=== PATIENT | female | born 1965 | race Caucasian/White ===

== ENCOUNTER → 2017-02-03 | Outpatient (CLI) | payer BC ==
--- NOTE | 2017-02-03 13:52 | DIAGNOSTIC IMAGING REPORT ---
RIGHT UPPER EXT JOINT WITHOUT CLINICAL HISTORY: 51 years-old Female presenting with R ELBOW PAIN Right. TECHNIQUE: Multisequence, multiplanar MR imaging of the right elbow was performed without the use of intravenous contrast. IV contrast: None. COMPARISON: None. FINDINGS: Localizer images: Unremarkable. Bone marrow signal intensity is normal. Articular cartilage intact. Apparent slight dorsal subluxation of the radial head on the capitellum, which is likely positional related to extreme extension. Common extensor tendon and radial collateral ligament intact. Common flexor tendon and ulnar collateral ligament intact. No elbow joint effusion. Normal muscle bulk. Minimal increased signal intensity within the brachialis and to a lesser extent in the supinator. Biceps tendon intact. IMPRESSION: Minimal increased signal intensity in the brachialis and supinator muscles suggesting strain. No evidence of tear. Electronically signed by: Manjinder Fernandez M.D. 02/03/2017 1:51 PM Dictated Date/Time: 02/03/2017 1:30 PM
== END | disposition home or self-care (01) ==
LOC: C.MRIBC 12:03
PROVIDERS: ATTEND Internal Medicine
DX: M25.521 Pain in right elbow (principal)

== ENCOUNTER → 2017-02-20 | Outpatient (CLI) | payer BC ==
--- NOTE | 2017-02-20 09:56 | DIAGNOSTIC IMAGING REPORT ---
RIGHT HUMERUS MIN 2 VIEWS CLINICAL HISTORY: 51 years-old Female presenting with PAIN IN RIGHT UPPER ARM Right. TECHNIQUE: Frontal and lateral views of the right humerus were obtained. COMPARISON: MR of the right elbow from 02/03/2017. FINDINGS: No acute fracture or subluxation. Glenohumeral and elbow joints grossly congruent. Regional soft tissues within normal limits. IMPRESSION: No osseous abnormality of the right humerus. Electronically signed by: Manjinder Fernandez M.D. 02/20/2017 9:55 AM Dictated Date/Time: 02/20/2017 9:51 AM
== END | disposition home or self-care (01) ==
LOC: C.RDSM 12:02
PROVIDERS: ATTEND Physician Assistant
DX: M79.621 Pain in right upper arm (principal)

== ENCOUNTER 2021-04-01 05:07 | Inpatient (IN) ==
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
[2021-04-01] MEDS ORDERED: ceFAZolin 2000MG 2,000 MG/15 ML SYR IV SCH (06:00)
[2021-04-01] MEDS ORDERED: LR 15ML/HR IV SCH (06:00)
[2021-04-01] MEDS ORDERED: ATROPINE SULFATE 0.1 MG/ML 10ML SYR IV PRN (06:36)
[2021-04-01] MEDS ORDERED: ePHEDrine sulfate 50 MG/ML AMP IV PRN (06:36)
[2021-04-01] MEDS ORDERED: ONDANSETRON INJ 2 MG/ML 2 ML VIAL IV PRN (06:36)
[2021-04-01] MEDS ORDERED: MIDAZOLAM HCL 1 MG/ML 2ML VIAL ONE (06:45)
[2021-04-01] MEDS ORDERED: fentaNYL citrate 100 MCG/2 ML VIAL ONE (06:46)
[2021-04-01] MEDS ORDERED: ACETAMINOPHEN 1000 MG/100 ML IV IV ONE (06:58)
[2021-04-01] MEDS ORDERED: PROPOFOL IV EMULSION 10 MG/ML 20 ML VIAL IV ONE (07:02)
[2021-04-01] MEDS ORDERED: ONDANSETRON INJ 2 MG/ML 2 ML VIAL ONE ×2 (07:02→08:35)
[2021-04-01] MEDS ORDERED: DEXAMETHASONE SOD INJ 4 MG/ML VIAL ONE ×2 (07:02)
[2021-04-01] MEDS ORDERED: ROCURONIUM BROMIDE 10 MG/ML 5 ML VIAL IV ONE (07:02)
[2021-04-01] MEDS ORDERED: LIDOCAINE 2% 2 ML VIAL/AMP(20MG/ML) INFIL ONE (07:02)
--- NOTE | 2021-04-01 07:09 | History & Physical Bridge Note ---
Date of Service April 01, 2021 History & Physical Bridge Note I have examined the patient, reviewed the History & Physical and in the interval since the performance of the History & Physical I have noted the following changes of clinical significance: no changes noted
[2021-04-01] MEDS ORDERED: diphenhydrAMINE 50 MG/ML VIAL ONE ×2 (08:09→08:15)
[2021-04-01] MEDS ORDERED: HYDROmorphone INJ 2 MG/ML SYR/VIAL ONE (08:24)
[2021-04-01] MEDS: BUPIVACAINE 0.5 % 5 MG/1 ML MPF 30ML VIAL ONE ×2 (08:43→10:24)
[2021-04-01] MEDS: EPINEPHrine INJ 1 MG/ML AMP ONE ×2 (08:43→10:24)
[2021-04-01] MEDS ORDERED: GLYCOPYRROLATE 0.2 MG/ML VIAL ONE (09:15)
[2021-04-01] MEDS ORDERED: NEOSTIGMINE METHYLSULFATE 1 MG/ML 10ML VIAL ONE (09:15)
[2021-04-01] MEDS: fentaNYL citrate 100 MCG/2 ML VIAL IV PRN ×4 (10:12→10:27)
--- NOTE | 2021-04-01 10:13 | Operative Report ---
PG Post Operative Report Pre & Post Diagnosis Operation Date: 04/01/21 07:15 Pre-Op Diagnosis: Colon Mass Post-Op Diagnosis: Colon Mass I identified the patient and participated in the time-out.: Yes Procedure Operation Date: 04/01/21 07:15 Actual Procedures p Laparoscopy, Convert to Open Left Hemicolectomy, Mobilization of Splenic Flexure(Not Applicable) - Doe Abdullahi DO Surgeon Doe Abdullahi DO Branding Machine Operator dionicio Richards Estimated Blood Loss 15 Findings Consistent with Post-Op Diagnosis Specimens left colon, portion of transverse colon Description of Procedure After informed consent was obtained the patient was taken to the operating room and placed in a supine position. After successful intubation a Mccollum catheter was placed sterilely and the patient was placed in a low lithotomy position. The entire abdomen and perineum was sterilely prepped and draped in usual fashion. I began with a supraumbilical incision made with an 11 blade scalpel. This was carried down through the soft tissues using cautery. The anterior rectus fascia was opened using cautery and two #0 Vicryl stay sutures were placed. Peritoneum was elevated with Opal clamps and incised under direct vision using a Metzenbaum scissor. A finger sweep was performed. A 12 mm Palacios trocar was advanced and the abdomen was insufflated to 18 mmHg. The laparoscope was inserted and the abdomen examined in 360 degrees. No gross abnormalities were identified. A right lower quadrant 12 mm port and a right mid abdominal 5 mm port were placed under direct vision. Patient was placed in a Trendelenburg position and slightly airplaned to the right. We began in the pelvis and ran the sigmoid colon proximally. Eventually we were able to identify 2 different tattoo kirkpatrick. One proximal to the lesion and one distal to the lesion as stated in the colonoscopy report. Unfortunately this was essentially right at the splenic flexure. This was going to make completion of the procedure laparoscopically quite difficult. No other gross abnormalities were identified. I made the decision early on to convert to a open procedure. We removed all the trochars and desufflated the abdomen. Incision was made from the supraumbilical trocar site up to just below the xiphoid process. Cautery was used to carry this down through the soft tissue. The fascia was opened in the midline and the incision opened to both poles using cautery. We did use a Bookwalter retractor throughout the case to help with exposure. We are able to readily identify the tattoo kirkpatrick. We mobilized the entire left colon along the white line of Toldt from the sigmoid up to and around the splenic flexure to the midportion of the transverse colon. I transected the left colon just proximal to the left colic vessels using a JOSE LUIS brown cartridge 60 mm stapler. We then transected the transverse colon just distal to the middle colic vessels again using a JOSE LUIS brown cartridge linear stapler. A LigaSure device was used to take down the mesentery of the colon staying as low as possible to incorporate lymph nodes. Once we had the specimen removed the mass itself was in the midportion of the specimen. It was sent to pathology. We thoroughly irrigated the wound. There was plenty of sigmoid colon which we had mobilized. It was quite redundant. Therefore we were able to perform a side to side transverse to sigmoid colon anastomosis. We did this using a JOSE LUIS brown cartridge linear stapler. We closed the common enterotomy with a brown cartridge stapler as well. The mesenteric defect was closed using 2-0 Vicryl in a running fashion. 3-[address] was [address] to place a crotch stitch. The staple lines looked good and intact. There was good blood supply and no evidence of any ischemia. Final thorough irrigation was performed. There was adequate hemostasis. We closed the fascia using 0-looped PDS in a running fashion. Soft tissue was irrigated and closed using 2-0 Vicryl for deep layers 3-0 Vicryl for mid layers and 3-0 Monocryl in a running subcuticular fashion for the skin. Benzoin Steri-Strips gauze and tape were used as a dressing. The right sided trocar sites were closed using 4-0 Monocryl and covered with Dermabond glue. The patient was awakened, extubated and transferred to recovery in stable condition. My physician patient clerical assistant was present through the entire case. He was instrumental in exposure throughout the procedure as well as with assisting on the anastomosis wound closure and dressing placement. I attest to the content of the Intraoperative Record and any orders documented therein. Any exceptions are noted below.
[2021-04-01] MEDS: HYDROmorphone INJ 1 MG/ML SYRINGE IV PRN ×6 (10:34→13:05)
--- NOTE | 2021-04-01 11:04 | Anesthesiology Progress Note ---
Date of Service April 01, 2021 Anesthesia Post Procedure Vital Signs Vital Signs: Temp Pulse Resp BP Pulse Ox 04/01/21 10:45 81 16 134/77 97 04/01/21 10:35 68 16 133/60 97 04/01/21 10:25 60 16 142/81 H 98 04/01/21 10:15 68 18 163/73 H 100 04/01/21 10:09 36.5 C 75 18 171/90 H 100 04/01/21 05:15 36.7 C 83 20 131/79 98 Transfer of Care Handoff Completed per policy Notes Mental Status: alert / awake / arousable and participated in evaluation Patient Amnestic to Procedure: Yes Nausea / Vomiting: adequately controlled Pain: adequately controlled Airway Patency, RR, SpO2: stable & adequate BP & HR: stable & adequate Hydration State: stable & adequate Anesthetic Complications: no major complications apparent and Pt Satisfied with anesthetic care
[2021-04-01] MEDS ORDERED: HYDROmorphone PCA 30 MG/30 ML IV ONE (14:02)
[2021-04-01] MEDS: LACTATED RINGER'S 1,000 ML IV SCH ×2 (14:30→22:34)
[2021-04-01] MEDS ORDERED: ACETAMINOPHEN 1,000 MG/100 ML VIAL IV PRN (15:03)
[2021-04-01] MEDS ORDERED: NALOXONE HCL 0.4 MG/1 ML VIAL/CARP IV PRN (15:03)
[2021-04-01] MEDS ORDERED: AMPHETAMINE ASP/SULF/DEXTRAMPH 5 MG TAB PO PRN (15:30)
[2021-04-01] MEDS: SODIUM CHLORIDE 0.9% 1000ML 1,000 ML IV SCH (15:32)
[2021-04-01] MEDS: ceFAZolin 2000MG 2,000 MG/15 ML SYR IV SCH ×2 (16:17→23:11)
[2021-04-01] MEDS: HYDROmorphone PCA 30 MG/30 ML IV PRN (19:03)
[2021-04-01] MEDS: HYDROXYCHLOROQUINE SULFATE 200 MG TAB PO SCH (21:48)
--- NOTE | 2021-04-02 03:31 | Communication Note ---
Date of Service: April 02, 2021 I was called by nurse stating that patient was utilizing [employer] for abdominal pain but was complaining of a frontal headache. At visit patient at bedside she was awake alert and appropriate. She did not have any noted neurologic deficits. Concerning her headache she said it is in the frontal region of her head in a symmetric fashion and came on gradually. Is possible that the patient's headache is related to several factors including being n.p.o. prior to her surgery and since the surgical procedure along with side effects of the [employer] that she is ut ilizing for postoperative pain. Patient has intravenous acetaminophen ordered which may help alleviate the headache.
[2021-04-02 06:35] LABS: Basophils # (auto) 0.01 K/uL (0-0.2); Basophils % (auto) 0.1 %; Eosinophils # (auto) 0.02 K/uL (0-0.5); Eosinophils % (auto) 0.2 %; Hematocrit (blood only) 34.5 % (37-47); Hemoglobin 11.4 g/dL (12.0-16.0); Immature Granulocytes # (auto) 0.01 K/uL (0.00-0.02); Immature Granulocytes % (auto) 0.1 %; Lymphocytes # (auto) 2.59 K/uL (1.2-3.4); Lymphocytes % (auto) 22.7 %; Mean Corpuscular Hemoglobin 29.2 pg (25-34); Mean Corpuscular Volume 88.2 fL (80-100); Mean Platelet Volume 10.4 fL (7.4-10.4); Monocytes # (auto) 1.37 K/uL (0.11-0.59); Neutrophils # (auto) 7.41 K/uL (1.4-6.5); Neutrophils % (auto) 64.9 %; Platelet Count 255 K/uL (130-400); RDW Coefficient of Variation 13.7 % (11.5-14.5); Red Blood Count 3.91 M/uL (4.2-5.4); White Blood Count 11.41 K/uL (4.8-10.8)
[2021-04-02] MEDS: LACTATED RINGER'S 1,000 ML IV SCH ×3 (06:48→23:12)
[2021-04-02 07:00] LABS: BUN Creatinine Ratio 14.2 (10-20); Calcium 8.5 mg/dl (8.5-10.1); Creatinine Clr Calc Pharmacy 99.5 ml/min; Est GFR (African American) 116.6 ml/min; Est GFR (Non-African American) 100.6 ml/min; Potassium 3.9 mmol/L (3.5-5.1)
[2021-04-02] MEDS: HYDROmorphone PCA 30 MG/30 ML IV PRN (07:17)
[2021-04-02] MEDS ORDERED: oxyCODONE/ACETAMINOPHEN 5mg/325mg TAB PO PRN (08:08)
[2021-04-02] MEDS ORDERED: HYDROmorphone INJ 0.5 MG/0.5 ML SYR IV PRN (08:08)
[2021-04-02] MEDS ORDERED: ACETAMINOPHEN 1,000 MG/100 ML VIAL IV SCH (08:30)
[2021-04-02] MEDS: ceFAZolin 2000MG 2,000 MG/15 ML SYR IV SCH (08:36)
[2021-04-02] MEDS: ENOXAPARIN INJ 40 MG/0.4 ML SYR SQ SCH (08:36)
[2021-04-02] MEDS: oxyCODONE/ACETAMINOPHEN 5mg/325mg TAB PO PRN ×2 (09:51→14:44)
--- NOTE | 2021-04-02 11:03 | Surgery Progress Note ---
Date of Service April 02, 2021 Assessment & Plan (1) Colonic mass: Plan: POD 1 doing as expected will add acetaminophen around the clock can try some clears cautiously [facility] documentation spec for weekend. Admission and Anticipated Discharge Date Admission Date: April 01, 2021 Subjective pt doing ok.. having expected abdominal discomfort. c/o of CUENCA....IV acetaminophen has helped. no nausea. Physical Exam Physical Exam: alert. nad abd: soft. dressings C/D/I. Results & Data ([facility]) Vital Signs (Past 12 Hours) Vital Signs Temp Pulse Resp BP Pulse Ox 04/02/21 07:20 36.8 C 84 16 136/76 98 04/02/21 03:18 166/91 H 04/02/21 03:07 36.4 C L 72 13 170/66 H 97 04/01/21 23:06 74 17 150/76 H 98 PG Care Time/CCT Total # of Minutes Spent Total Time Spent with Patient: Total time spent is greater than 50% in coordination of care (as documented) at patient's floor/unit and/or counseling patient: Coding Level of Care Code None Diagnoses Colonic mass K63.89
[2021-04-02] MEDS: ACETAMINOPHEN 1,000 MG/100 ML VIAL IV SCH ×2 (12:32→19:44)
[2021-04-02] MEDS: SODIUM CHLORIDE 0.9% 1000ML 1,000 ML IV SCH (16:23)
[2021-04-02] MEDS: HYDROXYCHLOROQUINE SULFATE 200 MG TAB PO SCH (20:27)
[2021-04-02] MEDS: ONDANSETRON INJ 2 MG/ML 2 ML VIAL IV PRN (20:50)
[2021-04-03] MEDS: ACETAMINOPHEN 1,000 MG/100 ML VIAL IV SCH ×3 (03:32→19:24)
[2021-04-03] MEDS: LACTATED RINGER'S 1,000 ML IV SCH ×3 (06:30→21:51)
[2021-04-03 06:32] LABS: Basophils # (auto) 0.01 K/uL (0-0.2); Basophils % (auto) 0.1 %; Eosinophils # (auto) 0.21 K/uL (0-0.5); Eosinophils % (auto) 2.2 %; Hematocrit (blood only) 34.4 % (37-47); Immature Granulocytes # (auto) 0.01 K/uL (0.00-0.02); Immature Granulocytes % (auto) 0.1 %; Lymphocytes # (auto) 1.98 K/uL (1.2-3.4); Lymphocytes % (auto) 20.5 %; Mean Corpuscular Hemoglobin 29.2 pg (25-34); Mean Corpuscular Volume 91.2 fL (80-100); Mean Platelet Volume 10.5 fL (7.4-10.4); Monocytes % (auto) 8.3 %; Neutrophils # (auto) 6.66 K/uL (1.4-6.5); Neutrophils % (auto) 68.8 %; Platelet Count 242 K/uL (130-400); RDW Coefficient of Variation 13.8 % (11.5-14.5); RDW Standard Deviation 45.8 fL (36.4-46.3); Red Blood Count 3.77 M/uL (4.2-5.4); White Blood Count 9.67 K/uL (4.8-10.8)
[2021-04-03 07:05] LABS: BUN Creatinine Ratio 8.5 (10-20); Calcium 8.3 mg/dl (8.5-10.1); Creatinine Clr Calc Pharmacy 107.1 ml/min; Est GFR (African American) 119.3 ml/min; Est GFR (Non-African American) 102.9 ml/min; Potassium 3.3 mmol/L (3.5-5.1)
[2021-04-03] MEDS ORDERED: MoRPHine SULFATE 2 MG/ML CARP IV PRN (07:47)
[2021-04-03] MEDS ORDERED: diphenhydrAMINE Capsule 25 MG CAP PO PRN (07:53)
--- NOTE | 2021-04-03 07:59 | Surgery Progress Note ---
Date of Service April 03, 2021 Assessment & Plan (1) Colonic mass: Plan: POD2 from open colectomy for splenic flexure mass. Overall, doing well. Await return of bowel function - given bloating/ nausea, will continue on clears Headache - PO ibuprofen ordered, dilaudid changed to IV morphine PRN Increase activity Admission and Anticipated Discharge Date Admission Date: April 01, 2021 Subjective Feels bloated. Not hungry. Had some nausea yesterday but no vomiting. No flatus or bowel movement. Requesting something for headache which started after dilaudid. Physical Exam Constitutional: looks well Eyes: sclerae aniteric Respiratory: clear bilaterally, no use of accessory muscles Cardiovascular: RRR no murmurs Gastrointestinal (Abdomen): soft, distended, some bowel tones are present, tender as expected, dressing dry Neurologic: alert, oriented x 3 Results & Data ([facility]) Vital Signs (Past 12 Hours) Vital Signs Temp Pulse Resp BP Pulse Ox 04/03/21 06:16 36.8 C 93 H 16 155/91 H 93 04/02/21 23:06 36.9 C 103 H 16 155/79 H 97 Laboratory Results Abnormal lab results 04/03/21 04/03/21 Range/Units 06:00 06:00 RBC 3.77 L (4.2-5.4) M/uL Hgb 11.0 L (12.0-16.0) g/dL Hct 34.4 L (37-47) % MPV 10.5 H (7.4-10.4) fL Neut # (Auto) 6.66 H (1.4-6.5) K/uL Sullivan # (Auto) 0.80 H (0.11-0.59) K/uL Potassium 3.3 L D (3.5-5.1) mmol/L Chloride 110 H (98-107) mmol/L BUN 5 L (7-18) mg/dl Creatinine 0.57 L (0.6-1.2) mg/dl BUN/Creatinine Ratio 8.5 L (10-20) Calcium 8.3 L (8.5-10.1) mg/dl
[2021-04-03] MEDS: IBUPROFEN 200 MG TAB PO PRN ×2 (08:32→14:04)
[2021-04-03] MEDS: ENOXAPARIN INJ 40 MG/0.4 ML SYR SQ SCH (08:32)
[2021-04-03] MEDS: HYDROXYCHLOROQUINE SULFATE 200 MG TAB PO SCH (20:42)
[2021-04-04] MEDS: ACETAMINOPHEN 1,000 MG/100 ML VIAL IV SCH ×3 (02:21→19:25)
[2021-04-04] MEDS: IBUPROFEN 200 MG TAB PO PRN (04:01)
[2021-04-04] MEDS: LACTATED RINGER'S 1,000 ML IV SCH ×3 (06:00→22:20)
[2021-04-04 06:25] LABS: Basophils # (auto) 0.01 K/uL (0-0.2); Basophils % (auto) 0.1 %; Eosinophils # (auto) 0.36 K/uL (0-0.5); Hematocrit (blood only) 36.4 % (37-47); Lymphocytes # (auto) 1.73 K/uL (1.2-3.4); Lymphocytes % (auto) 23.9 %; Mean Corpuscular Hemoglobin 29.1 pg (25-34); Mean Corpuscular Volume 88.3 fL (80-100); Mean Platelet Volume 10.2 fL (7.4-10.4); Monocytes # (auto) 0.74 K/uL (0.11-0.59); Monocytes % (auto) 10.2 %; Neutrophils # (auto) 4.41 K/uL (1.4-6.5); Neutrophils % (auto) 60.8 %; Platelet Count 261 K/uL (130-400); RDW Coefficient of Variation 13.4 % (11.5-14.5); RDW Standard Deviation 43.8 fL (36.4-46.3); Red Blood Count 4.12 M/uL (4.2-5.4); White Blood Count 7.25 K/uL (4.8-10.8)
[2021-04-04 07:11] LABS: Calcium 8.7 mg/dl (8.5-10.1); Creatinine Clr Calc Pharmacy 129.9 ml/min; Est GFR (African American) 127.1 ml/min; Est GFR (Non-African American) 109.6 ml/min; Potassium 3.1 mmol/L (3.5-5.1)
[2021-04-04] MEDS: ENOXAPARIN INJ 40 MG/0.4 ML SYR SQ SCH (09:28)
--- NOTE | 2021-04-04 10:19 | Surgery Progress Note ---
Date of Service April 04, 2021 Assessment & Plan (1) Colonic mass: Plan: POD3 from open colectomy for splenic flexure mass. Overall, doing better than yesterday. Will advance to full liquid diet. Increase activity Hypokalemia - will replete Admission and Anticipated Discharge Date Admission Date: April 01, 2021 Subjective Feels better today. Not as bloated, passing some flatus. No bowel movement yet. Pain better controlled. No nausea with clears. Physical Exam Constitutional: WD/WN, vitals as above Respiratory: normal respiratory effort, lungs clear to auscultation Cardiovascular: RRR, no murmur, no edema Gastrointestinal (Abdomen): Inspection/Auscultation: abdomen normal to inspection, + abdomen distended, normal bowel sounds and + abdominal surgical incision (clean and dry) Percussion/Palpation: + abdomen tender (at incision) and abdomen soft Neurologic: awake; no focal motor deficits Psychiatric: A+Ox3, euthymic affect Results & Data ([facility]) Vital Signs (Past 12 Hours) Vital Signs Temp Pulse Resp BP Pulse Ox 04/04/21 06:41 36.9 C 85 16 160/91 H 95 04/03/21 23:32 37 C 89 16 162/78 H 94 Laboratory Results Abnormal lab results 04/04/21 04/04/21 Range/Units 05:35 05:35 RBC 4.12 L (4.2-5.4) M/uL Hct 36.4 L (37-47) % George # (Auto) 0.74 H (0.11-0.59) K/uL Potassium 3.1 L (3.5-5.1) mmol/L Chloride 108 H (98-107) mmol/L BUN 4 L (7-18) mg/dl Creatinine 0.47 L (0.6-1.2) mg/dl BUN/Creatinine Ratio 9.0 L (10-20)
[2021-04-04] MEDS: ONDANSETRON INJ 2 MG/ML 2 ML VIAL IV PRN (11:11)
[2021-04-04] MEDS: POTASSIUM CHLORIDE 10 MEQ TABCR PO SCH ×2 (11:11→22:20)
[2021-04-04] MEDS: HYDROXYCHLOROQUINE SULFATE 200 MG TAB PO SCH (20:00)
[2021-04-05] MEDS: ACETAMINOPHEN 1,000 MG/100 ML VIAL IV SCH (03:40)
[2021-04-05] MEDS: LACTATED RINGER'S 1,000 ML IV SCH (05:29)
[2021-04-05 06:12] LABS: Basophils # (auto) 0.01 K/uL (0-0.2); Basophils % (auto) 0.2 %; Eosinophils # (auto) 0.35 K/uL (0-0.5); Eosinophils % (auto) 6.1 %; Hematocrit (blood only) 34.4 % (37-47); Hemoglobin 11.4 g/dL (12.0-16.0); Immature Granulocytes # (auto) 0.01 K/uL (0.00-0.02); Immature Granulocytes % (auto) 0.2 %; Lymphocytes # (auto) 1.62 K/uL (1.2-3.4); Mean Corpuscular Hemoglobin 28.8 pg (25-34); Mean Corpuscular Hgb Conc 33.1 g/dL (32-36); Mean Corpuscular Volume 86.9 fL (80-100); Mean Platelet Volume 9.8 fL (7.4-10.4); Monocytes # (auto) 0.63 K/uL (0.11-0.59); Monocytes % (auto) 10.9 %; Neutrophils # (auto) 3.16 K/uL (1.4-6.5); Neutrophils % (auto) 54.6 %; Platelet Count 273 K/uL (130-400); RDW Coefficient of Variation 13.2 % (11.5-14.5); RDW Standard Deviation 42.5 fL (36.4-46.3); Red Blood Count 3.96 M/uL (4.2-5.4); White Blood Count 5.78 K/uL (4.8-10.8)
[2021-04-05 06:35] LABS: Calcium 8.6 mg/dl (8.5-10.1); Creatinine Clr Calc Pharmacy 124.6 ml/min; Est GFR (African American) 125.3 ml/min; Est GFR (Non-African American) 108.2 ml/min; Potassium 3.5 mmol/L (3.5-5.1)
--- NOTE | 2021-04-05 07:56 | Surgery Progress Note ---
Date of Service April 05, 2021 Assessment & Plan (1) Colonic mass: Plan: POD 4 can shower transition to po analgesics K+ corrected reg diet later today or tomorrow as above. +multiple bm's yesterday. roger full liquids wound looks good path pending will advance diet. poss d/c later today or tomorrow. Admission and Anticipated Discharge Date Admission Date: April 01, 2021 Subjective several small, loose BMS, tolerating full liquids Physical Exam Gastrointestinal (Abdomen): Inspection/Auscultation: + abdominal surgical incision (clean, dry); abdomen not distended Percussion/Palpation: abdomen so ft Results & Data ([facility]) Vital Signs (Past 12 Hours) Vital Signs Temp Pulse Resp BP Pulse Ox 04/05/21 07:24 36.8 C 88 18 161/94 H 94 04/04/21 22:28 36.6 C 74 16 146/82 H 95 PG Care Time/CCT Total # of Minutes Spent Total Time Spent with Patient: Total time spent is greater than 50% in coordination of care (as documented) at patient's floor/unit and/or counseling patient: Coding Level of Care Code None Diagnoses Colonic mass K63.89
[2021-04-05] MEDS: ENOXAPARIN INJ 40 MG/0.4 ML SYR SQ SCH (09:13)
[2021-04-05] MEDS: POTASSIUM CHLORIDE 10 MEQ TABCR PO SCH (09:14)
--- NOTE | 2021-04-06 15:16 | Discharge Summary ---
Date of Service April 06, 2021 Principal Diagnosis Colon mass-large TVA Discharge Exam Constitutional WD/WN, vitals as above Gastrointestinal (Abdomen) Inspection/Auscultation: + abdominal surgical incision (dry, no erythema) Percussion/Palpation: abdomen soft Discharge Data Allergies Allergy/AdvReac Type Severity Reaction Status Date / Time No Known Allergies Allergy Unknown Verified 04/01/21 05:27 Procedures Performed Operation Date: 04/01/21 07:15 Actual Procedures p Laparoscopy, Convert to Open Left Hemicolectomy, Mobilization of Splenic Flexure(Not Applicable) - Doe Abdullahi DO Hospital Course (1) Colonic mass: 55 y/o female was taken to the operating room for laparoscopic assisted colectomy. The mass was just distal to the splenic flexure and the procedure was converted to open for mobilization of splenic flexure and anastomosis. She transferred to the surgical floor. Lovenox was started on POD 1. Clear liquids were started on day one. She had some nausea on day 2 but by day 3 had some returning bowel function and was able to begin full liquids. By day 4 she was having bowel movements and was able to tolerate low fiber diet and oral analgesics. She was stable for discharge home later in the day. Total Time Total Time Spent Total Time Spent (In Minutes): 15 Discharge Plan Discharge Items Patient Disposition: Home - Self-Care Reason For Visit: Colon Mass Discharge Diagnosis: left colectomy Activity: As commented below Lifting: No more than 10 pounds Bathing Comment: ok to shower Driving/Machine Use: when pain free Non-emergency contact: Surgeon Call non-emergency contact if: you have any medication questions, your pain is not controlled, you have a fever, your temperature is above 101.5 and your wound has increased redness Follow-up/Referrals: ProGabriel MD [Primary Care Provider] - Doe Abdullahi DO [Surgeon] - 04/12/21 10:00 am (In 7-10 days, please call if you do not already have an appt) Diet: Low Fiber Diet Comment: low fiber for a few days Addtl Attending Provider Instructions: Pending Studies at Discharge: Yes Studies:: pathology Stand-Alone Forms: My [employer], Opioid Pain Management, Smoking Cessation Medications and DC Order Prescriptions: New oxycodone-acetaminophen [Percocet] 5-325 mg tablet 1 - 2 tab PO Q4H PRN (Reason: pain, initial therapy, max 6 daily) Qty: 18 RF: 0 Continued ciclopirox 8 % solution 1 applic topical DAILY 28 Days Qty: 6.6 RF: 3 ibuprofen 600 mg tablet 600 mg PO Q8H PRN (Reason: Pain) RF: 0 dextroamphetamine-amphetamine [Adderall] 5 mg tablet 5 mg PO DAILY PRN (Reason: COGNITIVE IMPAIRMENT) Qty: 30 RF: 0 hydroxychloroquine [Plaquenil] 200 mg Tablet 200 mg PO HS RF: 0 copper 380 square mm Intrauterine Device 1 device INTRAUTERINE UD RF: 0 Discharge Orders: Discharge Order (Routine); Ordered 04/05/21 Ordered By: Qasim Richards Jr Admission Data Admit Date/Time: 04/01/21 10:15 Attending Provider: Doe Abdullahi Admit Provider: Doe Abdullahi Primary Care Provider: Gabriel Carpenter Other Interventions: Discharge Summary Assessment (RN) Last Done: 04/05/21 13:45 Coding Level of Care Code D/C DAY MANAGEMENT <30 MINS Diagnoses Colonic mass K63.89
== END 2021-04-05 18:32 | disposition home or self-care (01) | DRG 331 ==
LOC: PACUINP 05:07 → ASU 05:07 → OBSVTOIN 11:08 → 3E 14:41

== ENCOUNTER 2021-04-17 06:13 | Inpatient (IN) ==
[2021-04-17] MEDS ORDERED: SODIUM CHLORIDE 0.9% 1000ML 2,000 ML IV ONE (06:48)
[2021-04-17] MEDS ORDERED: ACETAMINOPHEN 1,000 MG/100 ML VIAL IV STA (06:48)
[2021-04-17] MEDS ORDERED: ONDANSETRON INJ 2 MG/ML 2 ML VIAL IV STA (06:49)
[2021-04-17] MEDS ORDERED: MoRPHine SULFATE 4 MG/ML 1 ML CARP\\VIAL IV STA (06:49)
[2021-04-17 06:51] LABS: Basophils # (auto) 0.02 K/uL (0-0.2); Basophils % (auto) 0.2 %; Eosinophils # (auto) 0.14 K/uL (0-0.5); Eosinophils % (auto) 1.5 %; Hematocrit (blood only) 36.8 % (37-47); Hemoglobin 12.1 g/dL (12.0-16.0); Immature Granulocytes # (auto) 0.01 K/uL (0.00-0.02); Immature Granulocytes % (auto) 0.1 %; Lymphocytes # (auto) 1.44 K/uL (1.2-3.4); Lymphocytes % (auto) 15.7 %; Mean Corpuscular Hemoglobin 28.7 pg (25-34); Mean Corpuscular Hgb Conc 32.9 g/dL (32-36); Mean Corpuscular Volume 87.2 fL (80-100); Mean Platelet Volume 10.2 fL (7.4-10.4); Monocytes # (auto) 0.53 K/uL (0.11-0.59); Monocytes % (auto) 5.8 %; Neutrophils # (auto) 7.03 K/uL (1.4-6.5); Neutrophils % (auto) 76.7 %; Platelet Count 383 K/uL (130-400); RDW Coefficient of Variation 13.2 % (11.5-14.5); RDW Standard Deviation 42.2 fL (36.4-46.3); Red Blood Count 4.22 M/uL (4.2-5.4); White Blood Count 9.17 K/uL (4.8-10.8)
[2021-04-17 07:08] LABS: Albumin Level 2.9 gm/dl (3.4-5.0); BUN Creatinine Ratio 11.7 (10-20); Calcium 9.3 mg/dl (8.5-10.1); Creatinine Clr Calc Pharmacy 78.3 ml/min; Est GFR (African American) 104.2 ml/min; Est GFR (Non-African American) 89.9 ml/min; Potassium 3.8 mmol/L (3.5-5.1)
[2021-04-17 07:11] LABS: Albumin Globulin Ratio 0.7 (0.9-2); Bilirubin,Total 0.3 mg/dl (0.2-1); Globulin 4.1 gm/dl (2.5-4.0)
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
[2021-04-17 07:37] LABS: Magnesium 2.1 mg/dl (1.8-2.4); Phosphorus 3.2 mg/dl (2.5-4.9)
[2021-04-17] MEDS ORDERED: OPTIRAY 320 100ml IV ONE (07:47)
--- NOTE | 2021-04-17 08:47 | CT Scan Report ---
ABDOMEN AND PELVIS CT WITH IV CONTRAST CT DOSE: 392.41 mGy.cm HISTORY: Acute generalized abdominal pain with recent surgery abdominal pain s/p hemicolectomy TECHNIQUE: Multiaxial CT images of the abdomen and pelvis were performed following the IV administrat ion of 94 cc of Optiray, A dose lowering technique was utilized adhering to the principles of ALARA. COMPARISON STUDY: CT abdomen and pelvis 03/04/2016 FINDINGS: Trace pleural effusions with mild deep and bibasilar atelectasis. No pneumatosis or pneumop eritoneum. The imaged inferior cardiac chambers are mildly enlarged. The spleen measures the upper li mits of normal in size. The pancreas, adrenal glands and liver appear unremarkable. Patency of the he patic and portal veins. Distended gallbladder. There is no biliary ductal dilation. Unremarkable kidneys. No hydronephrosis. Heterogeneity of the uterus with probable fibroid. Satisfact ory positioning of the intrauterine device. No adnexal mass lesions. Aorta and IVC are unremarkable. No adenopathy. No bowel obstruction. Decompressed distal large bowel postoperative changes of the large bowel. Mesen teric edema with trace abdominopelvic ascites. Anastomotic michelle appear intact. Normal appendix. Mi ldly prominent lymph nodes of the right lower quadrant mesentery measure up to 7 mm. Diastases the mi dline abdominal wall measures 4.6 cm. Fluid with ill-defined margins and no discernible wall is noted at the area of diastases measuring 4.2 x 4.5 x 6.4 cm. Small fat filled periumbilical hernia. No acu te fracture. IMPRESSION: 1. Postoperative changes of the large bowel. No bowel obstruction, bowel wall thickening or pneumoper itoneum. 2. 4.6 cm diastases of the mid anterior abdominal wall with ill-defined fluid collection at the area of diastases measuring up to approximately 6.4 cm. This is suggestive of a seroma versus phlegmon. 3. Trace abdominal pelvic ascites with trace pleural effusions and mild dependent bibasilar atelectas is. 4. Fibroid uterus with intrauterine device. 5. Additional findings as above. ACT 112: Negative or not required by law. The above report was generated using voice recognition software. It may contain grammatical, syntax o r spelling errors. Electronically signed by: Angel Dickinson M.D. 04/17/2021 8:46 AM
[2021-04-17] MEDS ORDERED: PIPERACILL/TAZOBAC CONSULT ACTIVE PRN ×2 (09:59→15:57)
[2021-04-17] MEDS ORDERED: PIPERACILLIN/TAZOBACTAM 4.5 GM/120 ML BAG IV ONE (09:59)
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
[2021-04-17] MEDS ORDERED: ACETAMINOPHEN 325 MG TAB PO STA (10:36)
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
[2021-04-17] MEDS ORDERED: VANCOMYCIN CONSULT ACTIVE PRN (15:20)
[2021-04-17] MEDS ORDERED: VANCOMYCIN HCL 1,000 MG in SODIUM CHLORIDE 0.9% 250 ML IV SCH (15:57)
[2021-04-17] MEDS ORDERED: IBUPROFEN 600 MG TAB PO PRN (15:57)
[2021-04-17] MEDS ORDERED: MoRPHine SULFATE 2 MG/ML CARP IV PRN (15:57)
[2021-04-17] MEDS ORDERED: oxyCODONE/ACETAMINOPHEN 5mg/325mg TAB PO PRN (15:57)
[2021-04-17] MEDS ORDERED: ACETAMINOPHEN 500 MG TAB PO PRN (16:09)
[2021-04-17] MEDS: LACTATED RINGER'S 1,000 ML IV SCH (16:15)
[2021-04-17 16:17] LABS: Hematocrit (blood only) 33.8 % (37-47); Hemoglobin 11.3 g/dL (12.0-16.0); Mean Corpuscular Hgb Conc 33.4 g/dL (32-36); Mean Corpuscular Volume 86.7 fL (80-100); Mean Platelet Volume 10.1 fL (7.4-10.4); Platelet Count 388 K/uL (130-400); RDW Coefficient of Variation 13.4 % (11.5-14.5); RDW Standard Deviation 42.8 fL (36.4-46.3); White Blood Count 15.16 K/uL (4.8-10.8)
[2021-04-17] MEDS ORDERED: VANCOMYCIN HCL 1,500 MG in SODIUM CHLORIDE 0.9% 500 ML IV ONE (16:30)
[2021-04-17 16:38] LABS: BUN Creatinine Ratio 10.5 (10-20); Calcium 8.8 mg/dl (8.5-10.1); Est GFR (African American) 89.4 ml/min; Est GFR (Non-African American) 77.2 ml/min; Potassium 3.7 mmol/L (3.5-5.1)
[2021-04-17] MEDS: ONDANSETRON INJ 2 MG/ML 2 ML VIAL IV PRN (16:50)
[2021-04-17] MEDS: ENOXAPARIN INJ 30 MG/0.3 ML SYR SQ SCH (16:56)
[2021-04-17] MEDS: PIPERACILLIN/TAZOBACTAM 3.375 GM in DEXTROSE 5% 100 ML IV SCH ×2 (17:11→23:55)
--- NOTE | 2021-04-17 17:31 | Surgery Progress Note ---
Date of Service April 17, 2021 Assessment & Plan (1) Abdominal wall cellulitis: Plan: pt is a 55 year-old female who is post-op 2 weeks left colectomy, pt develops incision redness about 4 days ago, pt saw his surgeon DR. Abdullahi yesterday, the redness area is smaller, Dr. Abdullahi recommend to continue po antibiotic. pt came to [facility] with more abdominal pain, IMP: Post-op incision cellulitis, seroma, phlegmon, plan, I recommend to admit to hospital for IV antibiotic, control pain, repeat labs in morning, may need surgery if pt's symptoms are worse, pt and her agree with the plan, I answered all questions, will F/U 04/17/2021 5:23PM pt's called that he told me to contact DR. Abdullahi, do not do surgery until Dr. Abdullahi see pt, I called Dr. Abdullahi, who already talked to Dr. aSini on the phone, Dr. Abdullahi said that early he can see pt tomorrow morning, D/W with Dr. Saini. base on increase WBC to 15,000, I will close monitor pt, I recommend to drainage fluid collection on incision site if pt's condition is getting worse, pt and her and Dr. Saini agree with the plan, will F/U, Admission and Anticipated Discharge Date Admission Date: April 17, 2021 Subjective pt has T 38.6, with abdominal pain, after receiving iv antibiotic, Review of Systems Constitutional: as per Subjective / HPI Eyes: as per Subjective / HPI Respiratory: as per Subjective / HPI Cardiovascular: as per Subjective / HPI Gastrointestinal: S/P left hemicolectomy, Genitourinary: as per Subjective / HPI Musculoskeletal: as per Subjective / HPI Integumentary: as per Subjective / HPI Neurologic: as per Subjective / HPI Psychiatric: as per Subjective / HPI Endocrine: as per Subjective / HPI Hematologic / Lymphatic: sjogrens syndrome Physical Exam Constitutional: WD/WN, vitals as above Eyes: PERRL, conjunctivae normal, anicteric sclerae Neck: trachea midline, no thyromegaly Respiratory: normal respiratory effort, lungs clear to auscultation Cardiovascular: RRR, no murmur, no edema Gastrointestinal (Abdomen): same size redness at lower incision site, no drainage, not increase size, tenderness at RLQ, rebound pain +-, no distend, BS + Musculoskeletal: no cyanosis or clubbing, extremities motor strength 5/5 Neurologic: patellar DTR's 2+ bilat, sensation intact Psychiatric: A+Ox3, euthymic affect Results & Data ([facility]) Vital Signs (Past 12 Hours) Vital Signs Temp Pulse Pulse Pulse Resp BP BP 04/17/21 16:26 38.6 C H 102 H 18 111/68 04/17/21 16:20 38.3 C H 100 H 18 117/69 04/17/21 15:47 37.1 C 96 H 20 108/68 04/17/21 15:00 102 H 27 H 117/57 L 04/17/21 12:20 106 H 23 04/17/21 12:10 107 H 24 04/17/21 12:00 105 H 19 123/61 04/17/21 11:50 100 H 22 04/17/21 11:40 101 H 25 H 04/17/21 11:30 99 H 27 H 119/66 04/17/21 11:20 105 H 25 H 04/17/21 11:10 102 H 20 04/17/21 11:00 99 H 20 109/57 L 04/17/21 10:50 95 H 22 04/17/21 10:40 95 H 23 04/17/21 10:30 95 H 26 H 128/65 04/17/21 10:20 92 H 20 04/17/21 10:10 92 H 22 04/17/21 10:00 90 14 107/61 04/17/21 09:50 92 H 25 H 04/17/21 09:40 92 H 21 04/17/21 09:30 91 H 20 101/57 L 04/17/21 09:20 89 19 04/17/21 09:10 92 H 24 04/17/21 09:00 90 17 100/57 L 04/17/21 08:50 92 H 21 04/17/21 08:40 93 H 21 04/17/21 08:30 91 H 19 94/50 L 04/17/21 08:20 94 H 21 04/17/21 08:10 96 H 19 04/17/21 08:00 98 H 16 112/55 L 04/17/21 07:50 100 H 22 04/17/21 07:30 99 H 23 04/17/21 07:20 95 H 22 04/17/21 07:10 100 H 20 04/17/21 07:00 101 H 24 04/17/21 06:50 97 H 36 H 04/17/21 06:40 103 H 24 04/17/21 06:30 97 H 27 H 04/17/21 06:26 95 H 28 H 04/17/21 06:19 37.7 C H 97 H 24 119/66 Pulse Ox 04/17/21 16:26 98 04/17/21 16:20 98 04/17/21 15:47 99 04/17/21 15:00 95 04/17/21 12:20 93 04/17/21 12:10 96 04/17/21 12:00 97 04/17/21 11:50 94 04/17/21 11:40 96 04/17/21 11:30 96 04/17/21 11:20 100 04/17/21 11:10 97 04/17/21 11:00 89 L 04/17/21 10:50 96 04/17/21 10:40 95 04/17/21 10:30 96 04/17/21 10:20 96 04/17/21 10:10 95 04/17/21 10:00 93 04/17/21 09:50 93 04/17/21 09:40 92 04/17/21 09:30 92 04/17/21 09:20 93 04/17/21 09:10 92 04/17/21 09:00 92 04/17/21 08:50 92 04/17/21 08:40 92 04/17/21 08:30 91 04/17/21 08:20 92 04/17/21 08:10 90 04/17/21 08:00 91 04/17/21 07:50 92 04/17/21 07:30 94 04/17/21 07:20 93 04/17/21 07:10 94 04/17/21 07:00 95 04/17/21 06:50 96 04/17/21 06:40 91 04/17/21 06:30 97 04/17/21 06:26 90 04/17/21 06:19 96 Laboratory Results Abnormal lab results 04/17/21 04/17/21 04/17/21 Range/Units 06:40 06:40 16:09 WBC 15.16 H (4.8-10.8) K/uL RBC 3.90 L (4.2-5.4) M/uL Hgb 11.3 L (12.0-16.0) g/dL Hct 36.8 L 33.8 L (37-47) % Neut # (Auto) 7.03 H (1.4-6.5) K/uL Glucose 102 H (70-99) mg/dl AST 14 L (15-37) U/L Alkaline Phosphatase 155 H (45-117) U/L Albumin 2.9 L (3.4-5.0) gm/dl Globulin 4.1 H (2.5-4.0) gm/dl Albumin/Globulin Ratio 0.7 L (0.9-2) 04/17/21 Range/Units 16:09 WBC (4.8-10.8) K/uL RBC (4.2-5.4) M/uL Hgb (12.0-16.0) g/dL Hct (37-47) % Neut # (Auto) (1.4-6.5) K/uL Glucose 117 H (70-99) mg/dl AST (15-37) U/L Alkaline Phosphatase (45-117) U/L Albumin (3.4-5.0) gm/dl Globulin (2.5-4.0) gm/dl Albumin/Globulin Ratio (0.9-2)
--- NOTE | 2021-04-17 18:45 | Pharmacy Report ---
Pharmacy Abx Initial Consult - Date of Service April 17, 2021 04/17/21 - Pharmacy Dosing Scope Date of Consult: 04/17/21 Consultation requested by: Dr. Saini Pharmacy is consulted to initiate Vancomycin IV dosing therapy, order appropriate labs and adjust drug dose/frequency. - Objective Height: 5 ft 3 in Weight: 69.2 kg Vital Signs (Past 12hrs): Vital Signs Temp Pulse Pulse Pulse Resp BP BP 04/17/21 16:26 38.6 C H 102 H 18 111/68 04/17/21 16:20 38.3 C H 100 H 18 117/69 04/17/21 15:47 37.1 C 96 H 20 108/68 04/17/21 15:00 102 H 27 H 117/57 L 04/17/21 12:20 106 H 23 04/17/21 12:10 107 H 24 04/17/21 12:00 105 H 19 123/61 04/17/21 11:50 100 H 22 04/17/21 11:40 101 H 25 H 04/17/21 11:30 99 H 27 H 119/66 04/17/21 11:20 105 H 25 H 04/17/21 11:10 102 H 20 04/17/21 11:00 99 H 20 109/57 L 04/17/21 10:50 95 H 22 04/17/21 10:40 95 H 23 04/17/21 10:30 95 H 26 H 128/65 04/17/21 10:20 92 H 20 04/17/21 10:10 92 H 22 04/17/21 10:00 90 14 107/61 04/17/21 09:50 92 H 25 H 04/17/21 09:40 92 H 21 04/17/21 09:30 91 H 20 101/57 L 04/17/21 09:20 89 19 04/17/21 09:10 92 H 24 04/17/21 09:00 90 17 100/57 L 04/17/21 08:50 92 H 21 04/17/21 08:40 93 H 21 04/17/21 08:30 91 H 19 94/50 L 04/17/21 08:20 94 H 21 04/17/21 08:10 96 H 19 04/17/21 08:00 98 H 16 112/55 L 04/17/21 07:50 100 H 22 04/17/21 07:30 99 H 23 04/17/21 07:20 95 H 22 04/17/21 07:10 100 H 20 04/17/21 07:00 101 H 24 04/17/21 06:50 97 H 36 H 04/17/21 06:40 103 H 24 04/17/21 06:30 97 H 27 H 04/17/21 06:26 95 H 28 H 04/17/21 06:19 37.7 C H 97 H 24 119/66 Pulse Ox 04/17/21 16:26 98 04/17/21 16:20 98 04/17/21 15:47 99 04/17/21 15:00 95 04/17/21 12:20 93 04/17/21 12:10 96 04/17/21 12:00 97 04/17/21 11:50 94 04/17/21 11:40 96 04/17/21 11:30 96 04/17/21 11:20 100 04/17/21 11:10 97 04/17/21 11:00 89 L 04/17/21 10:50 96 04/17/21 10:40 95 04/17/21 10:30 96 04/17/21 10:20 96 04/17/21 10:10 95 04/17/21 10:00 93 04/17/21 09:50 93 04/17/21 09:40 92 04/17/21 09:30 92 04/17/21 09:20 93 04/17/21 09:10 92 04/17/21 09:00 92 04/17/21 08:50 92 04/17/21 08:40 92 04/17/21 08:30 91 04/17/21 08:20 92 04/17/21 08:10 90 04/17/21 08:00 91 04/17/21 07:50 92 04/17/21 07:30 94 04/17/21 07:20 93 04/17/21 07:10 94 04/17/21 07:00 95 04/17/21 06:50 96 04/17/21 06:40 91 04/17/21 06:30 97 04/17/21 06:26 90 04/17/21 06:19 96 Lab Results (24hrs): Laboratory Tests (24 Hours) 04/17/21 04/17/21 04/17/21 16:09 16:09 06:40 WBC 15.16 H Neut # (Auto) Creatinine 0.84 Est Cr Clr Drug Dosing 69.0 Procalcitonin < 0.05 04/17/21 04/17/21 06:40 06:40 WBC 9.17 Neut # (Auto) 7.03 H Creatinine 0.74 Est Cr Clr Drug Dosing 78.3 Procalcitonin Micro Results: 04/17/21 08:17 Aerobic Blood Culture - Pending Blood Anaerobic Blood Culture - Pending 04/17/21 07:21 Aerobic Blood Culture - Pending Blood Anaerobic Blood Culture - Pending - Assessment & Plan Assessment 55 year old F presenting with complications s/p colectomy with left lower quadrant abdominal pain, incision redness and intermittent low grade fevers x 4 days. Patient started on Augmentin 875mg bid on 04/16. Febrile currently, tmax 38.6. Blood cultures pending. Plan Vancomycin and Zosyn for treatment of Cellulitis. Vancomycin IV * Estimated PK Parameters: Jah 0.069 hr-1, t1/2 10 hr * Loading dose: 1500mg (21.6 mg/kg) * Maintenance dose: 1000 mg IV (14.5 mg/kg) every 12 hours * Utilized Tidewayx to target AUC 400-600 * Will obtain trough before 4th dose Piperacillin/tazobactam * 4.5 g bolus administered over 30 minutes, then 3.375 g IV extended infusion every 8 hours for CrCl greater than 20 mL/min Pharmacy will continue to follow and will adjust dose/frequency as necessary. Thank you.
[2021-04-17] MEDS: MoRPHine SULFATE 2 MG/ML CARP IV PRN ×2 (18:51→23:46)
[2021-04-17] MEDS: oxyCODONE/ACETAMINOPHEN 5mg/325mg TAB PO PRN (20:24)
[2021-04-17] MEDS ORDERED: AMOXICILLIN/CLAVULANATE 875MG HOME PACK PO SCH (21:00)
[2021-04-18] MEDS: oxyCODONE/ACETAMINOPHEN 5mg/325mg TAB PO PRN ×3 (02:35→14:54)
[2021-04-18] MEDS: ONDANSETRON INJ 2 MG/ML 2 ML VIAL IV PRN (02:36)
[2021-04-18] MEDS: LACTATED RINGER'S 1,000 ML IV SCH ×3 (02:40→18:56)
[2021-04-18] MEDS ORDERED: VANCOMYCIN HCL 1,000 MG in SODIUM CHLORIDE 0.9% 250 ML IV SCH (05:00)
[2021-04-18] MEDS: MoRPHine SULFATE 2 MG/ML CARP IV PRN ×3 (05:42→21:30)
[2021-04-18] MEDS: VANCOMYCIN HCL 1,000 MG in SODIUM CHLORIDE 0.9% 250 ML IV SCH ×2 (05:43→18:57)
[2021-04-18] MEDS: PIPERACILLIN/TAZOBACTAM 3.375 GM in DEXTROSE 5% 100 ML IV SCH ×2 (07:36→16:40)
[2021-04-18 07:46] LABS: Basophils # (auto) 0.02 K/uL (0-0.2); Basophils % (auto) 0.2 %; Eosinophils # (auto) 0.21 K/uL (0-0.5); Eosinophils % (auto) 1.6 %; Hematocrit (blood only) 31.4 % (37-47); Hemoglobin 10.2 g/dL (12.0-16.0); Immature Granulocytes # (auto) 0.03 K/uL (0.00-0.02); Immature Granulocytes % (auto) 0.2 %; Lymphocytes # (auto) 2.45 K/uL (1.2-3.4); Lymphocytes % (auto) 19.1 %; Mean Corpuscular Hemoglobin 28.8 pg (25-34); Mean Corpuscular Hgb Conc 32.5 g/dL (32-36); Mean Corpuscular Volume 88.7 fL (80-100); Mean Platelet Volume 11.4 fL (7.4-10.4); Monocytes # (auto) 1.27 K/uL (0.11-0.59); Monocytes % (auto) 9.9 %; Neutrophils # (auto) 8.82 K/uL (1.4-6.5); Platelet Count 366 K/uL (130-400); RDW Coefficient of Variation 13.6 % (11.5-14.5); RDW Standard Deviation 44.8 fL (36.4-46.3); Red Blood Count 3.54 M/uL (4.2-5.4)
[2021-04-18 08:08] LABS: Albumin Level 2.2 gm/dl (3.4-5.0); BUN Creatinine Ratio 14.5 (10-20); Calcium 9.1 mg/dl (8.5-10.1); Creatinine Clr Calc Pharmacy 88.4 ml/min; Est GFR (Non-African American) 96.6 ml/min; Magnesium 1.9 mg/dl (1.8-2.4); Potassium 3.7 mmol/L (3.5-5.1)
[2021-04-18 08:11] LABS: Albumin Globulin Ratio 0.6 (0.9-2); Bilirubin,Total 0.6 mg/dl (0.2-1); Globulin 3.6 gm/dl (2.5-4.0); Total Protein 5.8 gm/dl (6.4-8.2)
[2021-04-18] MEDS: ENOXAPARIN INJ 30 MG/0.3 ML SYR SQ SCH (08:49)
--- NOTE | 2021-04-18 09:36 | Surgery Progress Note ---
Date of Service April 18, 2021 Assessment & Plan (1) Wound infection: Plan: I see no evidence of an intra-abdominal process. After informed consent was obtained the patient was placed in supine position. Chlorhexidine wipes were used to sterilize the area over the visible abscess. 11 blade scalpel was used to open her skin sutures. Cotton-tipped applicator was then used to probe the wound which expressed a large amount of purulent fluid. Cultures were obtained and sent to the lab for Gram stain culture and sensitivity. After evacuating a large amount of fluid we irrigated the wound and I packed it with quarter inch plain packing. Sterile gauze and tape were applied. The patient tolerated the procedure well. This should dramatically improve her condition. We will continue with IV antibiotics. I can restart her diet. If she improves as anticipated potential for discharge tomorrow. Admission and Anticipated Discharge Date Admission Date: April 17, 2021 Subjective Patient seen. She is feeling much better than she was yesterday. Continues to have tenderness at the lower portion of her incision. Currently afebrile. Physical Exam Physical Exam: Alert and oriented no acute distress Abdomen is soft. No evidence of peritonitis. She does have an organizing abscess localized near the inferior pole of her midline incision. Much less erythema than yesterday but is now consolidated right at the incision itself. Results & Data ([facility]) Vital Signs (Past 12 Hours) Vital Signs Temp Pulse Resp BP Pulse Ox 04/18/21 07:30 36.8 C 81 16 106/68 94 04/18/21 04:10 36.6 C 86 18 99/65 L 90 PG Care Time/CCT Total # of Minutes Spent Total Time Spent with Patient: Total time spent is greater than 50% in coordination of care (as documented) at patient's floor/unit and/or counseling patient: Coding Level of Care Code None Diagnoses Wound infection T14.8XXA; L08.9 CPT Codes Drainage of Hematoma/Fluid - 80213 ([id number])
[2021-04-19] MEDS: PIPERACILLIN/TAZOBACTAM 3.375 GM in DEXTROSE 5% 100 ML IV SCH ×4 (00:53→23:33)
[2021-04-19] MEDS: LACTATED RINGER'S 1,000 ML IV SCH ×4 (03:23→21:25)
[2021-04-19] MEDS: oxyCODONE/ACETAMINOPHEN 5mg/325mg TAB PO PRN ×4 (03:28→23:33)
[2021-04-19] MEDS: VANCOMYCIN HCL 1,000 MG in SODIUM CHLORIDE 0.9% 250 ML IV SCH ×2 (04:39→17:37)
[2021-04-19 06:33] LABS: Basophils # (auto) 0.02 K/uL (0-0.2); Basophils % (auto) 0.1 %; Eosinophils # (auto) 0.25 K/uL (0-0.5); Eosinophils % (auto) 1.8 %; Hematocrit (blood only) 30.9 % (37-47); Hemoglobin 10.1 g/dL (12.0-16.0); Immature Granulocytes # (auto) 0.06 K/uL (0.00-0.02); Immature Granulocytes % (auto) 0.4 %; Lymphocytes # (auto) 2.09 K/uL (1.2-3.4); Lymphocytes % (auto) 14.9 %; Mean Corpuscular Hemoglobin 28.5 pg (25-34); Mean Corpuscular Hgb Conc 32.7 g/dL (32-36); Mean Corpuscular Volume 87.3 fL (80-100); Monocytes # (auto) 1.36 K/uL (0.11-0.59); Monocytes % (auto) 9.7 %; Neutrophils # (auto) 10.28 K/uL (1.4-6.5); Neutrophils % (auto) 73.1 %; Platelet Count 377 K/uL (130-400); RDW Coefficient of Variation 13.3 % (11.5-14.5); Red Blood Count 3.54 M/uL (4.2-5.4); White Blood Count 14.06 K/uL (4.8-10.8)
--- NOTE | 2021-04-19 10:09 | Surgery Progress Note ---
Date of Service April 19, 2021 Assessment & Plan (1) Wound infection: (2) Abdominal pain: Plan: ? etiology. afebrile. exam relatively benign. wbc still 14,000. will monitor over next 24 hours...if wbc increases will re-CT scan tomorrow. continue iv antibiotics. continue local wound care. Admission and Anticipated Discharge Date Admission Date: April 17, 2021 Subjective pt seen. "just don't feel well". no specific complaints. poor appetite. tired. still with some RLQ discomfort with movment. afebrile. no n/v. Physical Exam Physical Exam: alert. nad abd: soft. wound looks much better. erythema essientially resolved. some serous drainage. mild RLQ ttp. no peritoneal signs. Results & Data ([facility]) Vital Signs (Past 12 Hours) Vital Signs Temp Pulse Resp BP Pulse Ox 04/19/21 07:40 36.7 C 87 18 114/73 97 04/18/21 22:25 37.5 C 101 H 16 128/78 93 PG Care Time/CCT Total # of Minutes Spent Total Time Spent with Patient: Total time spent is greater than 50% in coordination of care (as documented) at patient's floor/unit and/or counseling patient: Coding Level of Care Code None Diagnoses Wound infection T14.8XXA; L08.9 Abdominal pain R10.9 Abdominal location: unspecified location (1) Abdominal pain Abdominal location: unspecified location Qualified Code(s): R10.9 - Unspecified abdominal pain
[2021-04-19] MEDS: ENOXAPARIN INJ 30 MG/0.3 ML SYR SQ SCH (10:42)
[2021-04-19] MEDS ORDERED: VANCOMYCIN TROUGH ONE (16:30)
[2021-04-19] MEDS: ONDANSETRON INJ 2 MG/ML 2 ML VIAL IV PRN (16:36)
--- NOTE | 2021-04-19 17:48 | Communication Note ---
Date of Service: April 19, 2021 Attempted to see patient today. She is under the service of Dr. Abdullahi. 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 Subsequently developed cellulitis for which she was started on Augmentin. Despite this, had increasing pain which prompted her evaluation to the ED. She had a CT scan that showed diastases with an ill-defined fluid collection measuring 6.4 cm consistent with this seroma versus phlegmon. Is status post I&D. Culture data at the time of evaluation by myself this morning was pending. She did have leukocytosis of 14.06 but again is s/p I&D (on 04/18). Is on vancomycin and Zosyn. Upon walking into the room and introducing myself, patient reported that she does not wish to be seen by any hospitalist. She has "a bad experience" and does not want to see anyone except for Dr. Abdullahi. I respected these wishes. At this time, will sign off. Did update Dr. Abdullahi and told him not to hesitate to reach out should a problem arise.
[2021-04-19] MEDS ORDERED: traMADol HCL 50 MG TABLET PO PRN (18:50)
[2021-04-19] MEDS ORDERED: HYDROmorphone INJ 1 MG/ML SYRINGE IV PRN (18:50)
[2021-04-19] MEDS ORDERED: SODIUM CHLORIDE 0.9% 1000ML 1,000 ML IV ONE (18:53)
--- NOTE | 2021-04-19 19:31 | Pharmacy Report ---
Pharmacy Vanc AUC Short Note - Date of Service April 19, 2021 - Assessment & Plan Assessment 55 year old F receiving IV Vancomycin and Zosyn for treatment of cellulitis at incision site. Day # 3 of antimicrobial therapy. Plan Vancomycin * AUC/JAMES is the preferred PK/PD target for vancomycin * AUC guided dosing is effective and associated with decreased risk of nephrotoxicity compared to traditional trough targets * Trough level of 10.2 mcg/mL is predicted to achieve target AUC/JAMES of 400-600 mg/L.hr and may be associated with a 7 % risk of nephrotoxicity * Continue dose of 1000 mg IV every 12 hours * Plan to recheck trough in 2 days if patient is still admitted on Vancomycin Pharmacy will continue to follow and will adjust dose/frequency as necessary. Thank you.
[2021-04-19] MEDS ORDERED: DICYCLOMINE HCL 10 MG/ML 2 ML AMP/VIAL IM ONE (20:03)
[2021-04-19] MEDS: PROMETHAZINE HCL 25 MG in SODIUM CHLORIDE 0.9% 50 ML IV PRN (21:01)
[2021-04-19 23:36] LABS: Appearance Urine Clear (Clear); Bilirubin Urine Negative (Negative); Blood Urine Negative (Negative); Color Urine Yellow; Glucose Urine UA Negative (Negative); Ketones Urine 1+ (Negative); Leukocyte Esterase Urine Negative (Negative); Nitrite Urine Negative (Negative); Protein Urine Negative (Negative); Specific Gravity Urine 1.006 (1.000-1.030); Urobilinogen Urine Negative (Negative); pH Urine 6.5 (4.5-7.5)
--- NOTE | 2021-04-20 00:43 | Surgery Progress Note ---
Date of Service April 20, 2021 Assessment & Plan (1) Abdominal pain: Plan: Vomiting and diarrhea, suggestive of ileus. Will make npo, should have ng tube and xray. Orders placed. Admission and Anticipated Discharge Date Admission Date: April 17, 2021 Subjective Received call from nurse that patient had both vomiting and diarrhea following percocet. Results & Data ([facility]) Vital Signs (Past 12 Hours) Vital Signs Temp Pulse Resp BP Pulse Ox 04/19/21 23:01 36.9 C 105 H 16 161/82 H 97 04/19/21 18:23 37.1 C 04/19/21 15:28 36.9 C 95 H 16 127/82 97 (1) Abdominal pain Abdominal location: unspecified location Qualified Code(s): R10.9 - Unspecified abdominal pain
[2021-04-20] MEDS: VANCOMYCIN HCL 1,000 MG in SODIUM CHLORIDE 0.9% 250 ML IV SCH ×2 (05:14→17:18)
[2021-04-20] MEDS: LACTATED RINGER'S 1,000 ML IV SCH ×2 (06:48→07:33)
[2021-04-20 07:12] LABS: Hematocrit (blood only) 32.6 % (37-47); Hemoglobin 10.8 g/dL (12.0-16.0); Mean Corpuscular Hemoglobin 28.6 pg (25-34); Mean Corpuscular Hgb Conc 33.1 g/dL (32-36); Mean Corpuscular Volume 86.5 fL (80-100); Mean Platelet Volume 10.4 fL (7.4-10.4); Platelet Count 477 K/uL (130-400); RDW Coefficient of Variation 13.5 % (11.5-14.5); RDW Standard Deviation 42.6 fL (36.4-46.3); Red Blood Count 3.77 M/uL (4.2-5.4); White Blood Count 12.17 K/uL (4.8-10.8)
[2021-04-20 07:28] LABS: Creatinine Clr Calc Pharmacy 111.6 ml/min; Est GFR (African American) 120.6 ml/min
[2021-04-20] MEDS: PIPERACILLIN/TAZOBACTAM 3.375 GM in DEXTROSE 5% 100 ML IV SCH ×2 (07:37→15:44)
--- NOTE | 2021-04-20 07:38 | XRay Report ---
KUB HISTORY: vomiting COMPARISON: Abdomen and pelvis CT 04/17/2021. FINDINGS: Mildly dilated gas-filled loops of large and small bowel seen within the abdomen. Suture ma terial within the left side of the abdomen consistent with anastomosis within the colon. There is an intrauterine device seen within the mid pelvis. No renal calculi. No ureteral calculi. No pneumoperi toneum or pneumatosis. IMPRESSION: Mildly dilated gas-filled loops of large or small bowel seen within the abdomen. This is nonspecific but favors an ileus. A partial bowel obstruction is considered less likely but not entirely excluded. ACT 112: Negative or not required by law. Electronically signed by: Craig Paz M.D. 04/20/2021 7:36 AM
--- NOTE | 2021-04-20 07:55 | XRay Report ---
KUB CLINICAL HISTORY: Enteric tube placement. FINDINGS: An AP, portable, supine abdominal radiograph is compared to study performed earlier the radha 04/20/2021 and correlated with abdominal CT dated 04/17/2021. Enteric tube has been placed. The tip projects below the diaphragm over the gastric fundus. There is mild gaseous distention of the sma ll bowel loops with no radiographic evidence of high-grade obstruction. Small bowel loops measure up to 4.2 cm and this may represent ileus. Gas is also noted in the colon. No evidence of intraperitonea l free air is seen on this supine image. There are no abnormal abdominal calcifications. The skeletal structures are osteopenic and appear intact. IMPRESSION: 1. Enteric tube placement as above. 2. Possible ileus, unchanged from previous. Electronically signed by: Lopez Bass M.D. 04/20/2021 7:53 AM
[2021-04-20 07:56] LABS: Basophils # (auto) 0.03 K/uL (0-0.2); Basophils % (auto) 0.2 %; Echinocytes 1+; Eosinophils # (auto) 0.32 K/uL (0-0.5); Eosinophils % (auto) 2.6 %; Immature Granulocytes # (auto) 0.06 K/uL (0.00-0.02); Immature Granulocytes % (auto) 0.5 %; Lymphocytes # (auto) 2.23 K/uL (1.2-3.4); Lymphocytes % (auto) 18.3 %; Monocytes # (auto) 1.32 K/uL (0.11-0.59); Monocytes % (auto) 10.8 %; Neutrophils # (auto) 8.21 K/uL (1.4-6.5); Neutrophils % (auto) 67.6 %
[2021-04-20] MEDS ORDERED: SODIUM CHLORIDE 0.9% 1000ML 1,000 ML IV ONE (08:48)
--- NOTE | 2021-04-20 09:28 | Surgery Progress Note ---
Date of Service April 20, 2021 Assessment & Plan (1) Abdominal pain: Plan: some improvement clinically. wbc decreased to 12,000 ( 14,000 yesterday) afebrile. vss ? etiology of RLQ pain. will repeat ct scan to re-evaluated everything suspect ileus....symptoms improved after ngt and bm small fascial dehisence on admission ct... may close prior to d/c pending how she does clinically continue antibiotics. will call with update after ct scan. IVF bolus for GI loses. will check CMP as well. Keep ngt for now. Admission and Anticipated Discharge Date Admission Date: April 17, 2021 Subjective pt seen and spoke earlier with overnight nurse ( Beatriz)...pt did much better after NGT placed. did not require any pain meds after ngt placed. had 2 very large bm's overnight. pt still with "intermittent" RLQ pain that occurs sporadically. denies pain now. main c/o now is ngt discomfort and fatigue. Physical Exam Physical Exam: alert. appears fatigued. no distress. abd: soft. mild distension. wound infection looks dramatically better. +RLQ ttp. Results & Data ([facility]) Vital Signs (Past 12 Hours) Vital Signs Temp Pulse Resp BP Pulse Ox 04/20/21 07:43 36.7 C 72 16 121/74 98 04/19/21 23:01 36.9 C 105 H 16 161/82 H 97 PG Care Time/CCT Total # of Minutes Spent Total Time Spent with Patient: Total time spent is greater than 50% in coordination of care (as documented) at patient's floor/unit and/or counseling patient: Coding Level of Care Code None Diagnoses Abdominal pain R10.9 Abdominal location: unspecified location (1) Abdominal pain Abdominal location: unspecified location Qualified Code(s): R10.9 - Unspecified abdominal pain
[2021-04-20] MEDS: ONDANSETRON INJ 2 MG/ML 2 ML VIAL IV PRN (09:35)
[2021-04-20 10:14] LABS: BUN Creatinine Ratio 8.4 (10-20); Calcium 8.5 mg/dl (8.5-10.1); Creatinine Clr Calc Pharmacy 97.2 ml/min; Est GFR (African American) 115.2 ml/min; Est GFR (Non-African American) 99.4 ml/min
[2021-04-20] MEDS: ENOXAPARIN INJ 30 MG/0.3 ML SYR SQ SCH ×2 (11:11→11:13)
[2021-04-20] MEDS: POTASSIUM CHLORIDE 40 MEQ in D5W AND NSS 1,000 ML IV SCH ×2 (11:16→21:02)
[2021-04-20] MEDS: PROMETHAZINE HCL 25 MG in SODIUM CHLORIDE 0.9% 50 ML IV PRN (11:32)
[2021-04-20] MEDS ORDERED: OPTIRAY 320 100ml IV ONE (11:56)
--- NOTE | 2021-04-20 13:26 | CT Scan Report ---
CT SCAN OF THE ABDOMEN AND PELVIS WITH IV CONTRAST CLINICAL HISTORY: Generalized abdominal pain. Recent surgery. COMPARISON STUDY: Abdominal CT dated 04/17/2021. TECHNIQUE: Following the IV administration of 90 cc of Optiray 320, CT scan of the abdomen and pelvi s is performed from the lung bases to the proximal femora. Images are reviewed in the axial, sagittal , and coronal planes. IV contrast was administered without complication. Oral contrast was utilized. A dose lowering technique was utilized adhering to the principles of ALARA. CT DOSE: 909.34 mGycm FINDINGS: Lung bases: The heart is normal in size and without pericardial effusion. There are small pleural eff usions, left larger than right with bibasilar atelectasis. These are new from 04/17/2021. Liver: The contrast-enhanced liver is normal in size, contour, and attenuation. There is no intrahepa tic biliary ductal dilatation. The hepatic veins and portal veins are patent. Gallbladder: Unremarkable. Spleen: Normal in size and attenuation. Pancreas: Unremarkable. Adrenal glands: Unremarkable. Kidneys: The contrast enhanced kidneys are normal in size and without hydronephrosis. The kidneys enh ance symmetrically. Abdominal vasculature: The abdominal aorta is normal in course and caliber. Stomach and bowel: Enteric tube terminates in the distal stomach. There is postoperative change from left-sided colon resection with colocolonic anastomosis. The small bowel loops are distended and fill ed with contrast, measuring up to 3.3 cm diameter. The appearance favors ileus. There is no evidence of high-grade bowel obstruction, as no transition point is identified and enteric contrast reaches th e right colon. The appendix is well-visualized and normal. Mildly thick-walled loops of small bowel are seen in the left lower quadrant on image #236 and throughout the pelvis. Peritoneum: There is a small volume of perihepatic and perisplenic ascites. No peritoneal free air is seen. There are multiple loculated fluid collections in the lower abdomen and pelvis with surroundin g peritoneal thickening and enhancement. A collection the central pelvis between the uterus and rectu m on image #357 measures 5.4 x 5.2 x 8.1 cm. A collection anterior to the uterus on image #357 measur es approximately 7 x 3 x 10.5 cm, and this is contiguous with collection above the uterus seen on sandy ge #320 which measures approximately 5 x 5 cm. A fluid collection in the right lower quadrant on imag e #278 measures approximately 5 x 2.5 cm, and a collection in the left lower quadrant on image #20 an d 62 measures approximately 5 x 3 cm. Additional smaller pockets of fluid are seen in the right lower quadrant on image #268 and #291. Abdominal wall: There is a fat-containing umbilical hernia. A midline surgical incision is noted with foci of subcutaneous gas and induration. The fluid collection in the abdominal wall has resolved fro m previous. Foci of soft tissue gas are seen within the left lower quadrant abdominal wall and overly ing the left hip. Lymphadenopathy: None. Pelvic viscera: The the bladder is distended but otherwise normal in appearance. Uterine fibroids are suggested. An intrauterine device is in place. The ovaries appear mildly enlarged and heterogeneous suggesting oophoritis. Skeletal structures: No lytic or blastic lesions are seen. IMPRESSION: 1. Again seen is postoperative change from left-sided colonic resection. Distended loops of small bow el likely represent ileus, as no transition point is identified and enteric contrast reaches the righ t colon. Low-grade obstruction is considered less likely. 2. The fluid collection within the ventral abdominal wall seen on 04/17/2021 has resolved. 3. Small pleural effusions and abdominal ascites are new from previous. 4. There are multiple loculated fluid collections in the lower abdomen and pelvis as detailed above w hich demonstrate peripheral peritoneal thickening and enhancement. These are new from 04/17/2021 and t his likely represents peritonitis with developing abscesses. 5. There are mildly thick-walled loops of small bowel in the lower abdomen and pelvis, likely represe nting a reactive enteritis secondary to peritonitis. 6. There is evidence of bilateral reactive oophoritis. 7. No intraperitoneal free air is seen. 8. Additional findings as above. ACT 112: Negative or not required by law. Electronically signed by: Lopez Bass M.D. 04/20/2021 1:24 PM
[2021-04-21] MEDS: PIPERACILLIN/TAZOBACTAM 3.375 GM in DEXTROSE 5% 100 ML IV SCH ×4 (01:03→23:15)
[2021-04-21] MEDS ORDERED: VANCOMYCIN TROUGH ONE (04:30)
[2021-04-21] MEDS: VANCOMYCIN HCL 1,000 MG in SODIUM CHLORIDE 0.9% 250 ML IV SCH ×2 (04:46→16:26)
[2021-04-21 04:48] LABS: Hematocrit (blood only) 29.4 % (37-47); Hemoglobin 9.8 g/dL (12.0-16.0); Mean Corpuscular Hemoglobin 28.9 pg (25-34); Mean Corpuscular Hgb Conc 33.3 g/dL (32-36); Mean Corpuscular Volume 86.7 fL (80-100); Mean Platelet Volume 9.2 fL (7.4-10.4); Platelet Count 507 K/uL (130-400); RDW Coefficient of Variation 13.5 % (11.5-14.5); RDW Standard Deviation 42.8 fL (36.4-46.3); Red Blood Count 3.39 M/uL (4.2-5.4)
[2021-04-21] MEDS: POTASSIUM CHLORIDE 40 MEQ in D5W AND NSS 1,000 ML IV SCH ×3 (04:50→21:13)
[2021-04-21 05:24] LABS: Basophils # (auto) 0.03 K/uL (0-0.2); Basophils % (auto) 0.3 %; Eosinophils # (auto) 0.35 K/uL (0-0.5); Eosinophils % (auto) 3.6 %; Immature Granulocytes # (auto) 0.04 K/uL (0.00-0.02); Immature Granulocytes % (auto) 0.4 %; Lymphocytes # (auto) 2.17 K/uL (1.2-3.4); Lymphocytes % (auto) 22.6 %; Monocytes # (auto) 1.19 K/uL (0.11-0.59); Monocytes % (auto) 12.4 %; Neutrophils # (auto) 5.82 K/uL (1.4-6.5); Neutrophils % (auto) 60.7 %
[2021-04-21 05:41] LABS: BUN Creatinine Ratio 3.9 (10-20); Calcium 8.2 mg/dl (8.5-10.1); Creatinine Clr Calc Pharmacy 60.3 ml/min; Est GFR (African American) 71.9 ml/min; Est GFR (Non-African American) 62.1 ml/min; Potassium 3.1 mmol/L (3.5-5.1)
--- NOTE | 2021-04-21 10:50 | Surgery Progress Note ---
Date of Service April 21, 2021 Assessment & Plan (1) Postoperative seroma: Plan: Clinically improving. I discussed the results of yesterday's CT scan with her and her . She has fluid in the pelvis it is unclear to me if this is infected fluid or not. Since she is improving I think we will continue with the current treatment plan and not plan a surgical drainage at this time. Interventional radiology did not feel they could access the fluid pockets to tally and at this point in time I do not believe the risk/benefit currently would warrant taking her to the operating room for drainage. Her white blood cell count is now normal and she is continued to be afebrile and again is improving. I will perform an NG tube clamping trial today and if she passes that we will pull the NG tube and start some clear liquids. She will need to remain on IV antibiotics. (2) H/O left hemicolectomy: Admission and Anticipated Discharge Date Admission Date: April 17, 2021 Subjective Feeling better than yesterday. Has not required pain medicine since sometime yesterday. She is had multiple loose bowel movements since I had seen her last. She still having some right lower quadrant discomfort primarily with movement. Is not debilitating. Physical Exam Physical Exam: Alert and oriented no acute distress Abdomen is soft with right lower quadrant tenderness to palpation. The incision is dramatically improving. Still small amount of serous drainage from her seroma Results & Data ([facility]) Vital Signs (Past 12 Hours) Vital Signs Temp Pulse Resp BP Pulse Ox 04/21/21 08:14 36.8 C 84 16 158/89 H 97 04/20/21 23:05 36.8 C 94 H 16 158/87 H 98 PG Care Time/CCT Total # of Minutes Spent Total Time Spent with Patient: Total time spent is greater than 50% in coordination of care (as documented) at patient's floor/unit and/or counseling patient: Coding Level of Care Code None Diagnoses Postoperative seroma Surgical complication system/body Area: subcutaneous tissue H/O left hemicolectomy Z90.49 (1) Postoperative seroma Surgical complication system/body Area: subcutaneous tissue
[2021-04-21] MEDS: ENOXAPARIN INJ 30 MG/0.3 ML SYR SQ SCH (11:38)
--- NOTE | 2021-04-21 11:56 | Pharmacy Report ---
Pharmacy Vanc AUC Short Note - Date of Service April 21, 2021 - Assessment & Plan Assessment * Ms Fajardo is a 55 year old F receiving IV Vancomycin and Zosyn for treatment of post-op infection at incision site. * Day #5 of antimicrobial therapy. * Pt has had abscess drainage during admission. Currently evidence of fluid collection in pelvis per CT, but surgery does not believe that further intervention is indicated at this time. * Vancomycin level obtained this mornin.7 mcg/mL * SCr increased significantly this morning (0.62 --> 1.0). Will continue to trend. * Preliminary abdominal cultures show probable laurie GNB. If final culture results remain gm negative species, would recommend d/c vancomycin. Plan Vancomycin * AUC/JAMES is the preferred PK/PD target for vancomycin * AUC guided dosing is effective and associated with decreased risk of nephrotoxicity compared to traditional trough targets * Trough level of 15.7 mcg/mL is predicted to achieve target AUC/JAMES of ~600 mg/L.hr. * This regimen is still appropriate for now, but is on the upper end of targ et AUC. * Continue dose of 1000 mg IV every 12 hours * If SCr does not improve tomorrow morning, will need to consider reducing vancomycin dosing regimen. * Plan to recheck trough in a couple of days if patient continues to receive vancomycin. Zosyn 4.5gm IV x1, then Zosyn 3.375gm IV q8h Pharmacy will continue to follow and will adjust dose/frequency as necessary. Thank you.
[2021-04-21] MEDS: ONDANSETRON INJ 2 MG/ML 2 ML VIAL IV PRN ×2 (16:30→21:55)
[2021-04-22] MEDS: POTASSIUM CHLORIDE 40 MEQ in D5W AND NSS 1,000 ML IV SCH ×2 (05:51→14:54)
[2021-04-22] MEDS: VANCOMYCIN HCL 1,000 MG in SODIUM CHLORIDE 0.9% 250 ML IV SCH (05:51)
[2021-04-22] MEDS: ONDANSETRON INJ 2 MG/ML 2 ML VIAL IV PRN ×2 (05:56→13:03)
[2021-04-22 06:51] LABS: Creatinine Clr Calc Pharmacy 64.1 ml/min; Est GFR (African American) 77.5 ml/min; Est GFR (Non-African American) 66.9 ml/min
--- NOTE | 2021-04-22 08:55 | Surgery Progress Note ---
Date of Service April 22, 2021 Assessment & Plan (1) Wound infection: Plan: doing ok. good return of bowel fx but still with underlying nausea continue iv antibiotics mild hyptertention..will start vasotec ( pt refusing to see IM) if no improvement in po intake by tomorrow will likely start some IV nutrition. increase activity. might consult PT. (2) Postoperative seroma: Admission and Anticipated Discharge Date Admission Date: April 17, 2021 Subjective pt seen. doing ok. main c/o is nausea and poor appetite. no emesis. continues to have relatively large volume bm's. had not required pain medication. Physical Exam Physical Exam: alert. nad abd: soft. mild lower abd ttp. no peritoneal signs. wound looks great. erythema resolved. minimal serous drainage. Results & Data ([facility]) Vital Signs (Past 12 Hours) Vital Signs Temp Pulse Resp BP Pulse Ox 04/22/21 07:23 36.7 C 82 16 169/96 H 97 04/22/21 00:13 36.6 C 82 20 164/86 H 98 PG Care Time/CCT Total # of Minutes Spent Total Time Spent with Patient: Total time spent is greater than 50% in coordination of care (as documented) at patient's floor/unit and/or counseling patient: Coding Level of Care Code None Diagnoses Wound infection T14.8XXA; L08.9 Postoperative seroma Surgical complication system/body Area: subcutaneous tissue (1) Postoperative seroma Surgical complication system/body Area: subcutaneous tissue
[2021-04-22] MEDS ORDERED: ENALAPRIL MALEATE 5 MG TAB PO SCH (09:00)
[2021-04-22] MEDS: PIPERACILLIN/TAZOBACTAM 3.375 GM in DEXTROSE 5% 100 ML IV SCH ×2 (09:29→16:32)
[2021-04-22] MEDS: ENOXAPARIN INJ 30 MG/0.3 ML SYR SQ SCH (10:15)
[2021-04-22] MEDS ORDERED: Nursing to Pharmacy Communication SCH (16:15)
[2021-04-22] MEDS: ACETAMINOPHEN 325 MG TAB PO PRN ×2 (17:35→17:50)
[2021-04-22] MEDS: PROMETHAZINE HCL 25 MG in SODIUM CHLORIDE 0.9% 50 ML IV PRN (18:10)
[2021-04-22] MEDS: ENALAPRIL MALEATE 10 MG TAB PO SCH (21:52)
[2021-04-23] MEDS: ONDANSETRON INJ 2 MG/ML 2 ML VIAL IV PRN ×3 (00:03→14:36)
[2021-04-23] MEDS: POTASSIUM CHLORIDE 40 MEQ in D5W AND NSS 1,000 ML IV SCH ×3 (00:04→17:15)
[2021-04-23] MEDS: PIPERACILLIN/TAZOBACTAM 3.375 GM in DEXTROSE 5% 100 ML IV SCH ×3 (00:04→17:18)
[2021-04-23 06:19] LABS: Basophils # (auto) 0.02 K/uL (0-0.2); Basophils % (auto) 0.1 %; Eosinophils # (auto) 0.42 K/uL (0-0.5); Hematocrit (blood only) 30.7 % (37-47); Immature Granulocytes # (auto) 0.12 K/uL (0.00-0.02); Immature Granulocytes % (auto) 0.8 %; Lymphocytes # (auto) 1.98 K/uL (1.2-3.4); Mean Corpuscular Hgb Conc 32.6 g/dL (32-36); Monocytes # (auto) 1.19 K/uL (0.11-0.59); Monocytes % (auto) 8.4 %; Neutrophils # (auto) 10.43 K/uL (1.4-6.5); Neutrophils % (auto) 73.7 %; Platelet Count 536 K/uL (130-400); RDW Coefficient of Variation 13.8 % (11.5-14.5); RDW Standard Deviation 43.1 fL (36.4-46.3); Red Blood Count 3.57 M/uL (4.2-5.4); White Blood Count 14.16 K/uL (4.8-10.8)
[2021-04-23] MEDS: ACETAMINOPHEN 325 MG TAB PO PRN (07:20)
[2021-04-23] MEDS: ENALAPRIL MALEATE 10 MG TAB PO SCH (08:54)
--- NOTE | 2021-04-23 09:44 | Surgery Progress Note ---
Date of Service April 23, 2021 Assessment & Plan (1) Postoperative seroma: (2) Abdominal pain: (3) H/O left hemicolectomy: Plan: she believes she is improving albeit slowly. she feels much better than she did at admission. wbc slighly up today but she remains afebrile. main issue for her at this point is nausea. her pain is still present but not worsening. will repeat KUB today and at this point will start PPN...if no improvement by monday will start TPN we discussed going to the OR today for an abdominal washout which may get her better quicker ( though no guarantee). It is unclear if the fluid is infected or not. she wants to wait as this time and continue our current care as she does believe she is slowly improving. if she worsens, spikes fevers, or gets increasing leukocytosis the next step would be a washout. will increase her vasotec. If she cannot tolerate will need to change to something else. Dr. Jackman post acute care nurse practitioner for weekend. Admission and Anticipated Discharge Date Admission Date: April 17, 2021 Subjective pt seen. no new complaints. continues to have loose bm's. still having nausea ( no emesis) and poor appetite. still has intermittent abdominal discomfort. starts in RLQ and follows course of the large bowel...she believes it is gas pain. she does not want to take pain medicine. she also feels the vasotec made her feel poorly last night. Physical Exam Physical Exam: alert. nad abd: soft. mild lower abd. ttp. no peritoneal signs. wound looks good. small amount of serous drainage. no peritoneal signs. Results & Data ([facility]) Vital Signs (Past 12 Hours) Vital Signs Temp Pulse Resp BP BP Pulse Ox 04/23/21 06:42 36.5 C 75 16 159/93 H 98 04/23/21 00:02 36.4 C L 85 16 162/83 H 97 04/22/21 22:25 36.7 C 75 18 160/94 H 98 PG Care Time/CCT Total # of Minutes Spent Total Time Spent with Patient: Total time spent is greater than 50% in coordination of care (as documented) at patient's floor/unit and/or counseling patient: Coding Level of Care Code None Diagnoses Postoperative seroma Surgical complication system/body Area: subcutaneous tissue Abdominal pain R10.9 Abdominal location: unspecified location H/O left hemicolectomy Z90.49 (1) Postoperative seroma Surgical complication system/body Area: subcutaneous tissue (2) Abdominal pain Abdominal location: unspecified location Qualified Code(s): R10.9 - Unspecified abdominal pain
[2021-04-23] MEDS ORDERED: TPN/PPN CONSULT PHARMACY PRN (10:36)
[2021-04-23] MEDS ORDERED: TPN/PPN CONSULT PHARMACY STA (10:38)
--- NOTE | 2021-04-23 10:41 | XRay Report ---
KUB HISTORY: nausea/ileus COMPARISON: KUB 04/20/2021. FINDINGS: The bowel gas pattern is unremarkable. There are no dilated loops of small bowel to suggest an obstruction. No renal calculi. No ureteral calculi. No pneumoperitoneum or pneumatosis. An intra uterine device is again noted within the mid pelvis. Nasogastric tube is been removed. There are sutu re material in the left side the abdomen consistent with postoperative change. IMPRESSION: Unremarkable bowel gas pattern. No evidence for bowel obstruction. ACT 112: Negative or not required by law. Electronically signed by: Craig Paz M.D. 04/23/2021 10:40 AM
[2021-04-23] MEDS: ENOXAPARIN INJ 30 MG/0.3 ML SYR SQ SCH (10:53)
[2021-04-23 11:12] LABS: Albumin Globulin Ratio 0.6 (0.9-2); Albumin Level 2.2 gm/dl (3.4-5.0); BUN Creatinine Ratio 2.2 (10-20); Bilirubin,Total 0.3 mg/dl (0.2-1); Calcium 8.7 mg/dl (8.5-10.1); Creatinine Clr Calc Pharmacy 59.7 ml/min; Est GFR (African American) 69.4 ml/min; Est GFR (Non-African American) 59.9 ml/min; Globulin 3.9 gm/dl (2.5-4.0); Magnesium 1.8 mg/dl (1.8-2.4); Phosphorus 3.3 mg/dl (2.5-4.9); Potassium 3.6 mmol/L (3.5-5.1); Total Protein 6.1 gm/dl (6.4-8.2)
[2021-04-23] MEDS: ACETAMINOPHEN 1,000 MG/100 ML VIAL IV PRN (12:38)
[2021-04-23] MEDS ORDERED: TPN IV SCH (16:00)
[2021-04-23] MEDS ORDERED: DEXTROSE 10% 1,000 ML IV PRN (16:00)
[2021-04-23] MEDS ORDERED: PERIPHERAL PN IV SCH (16:00)
[2021-04-23] MEDS: ENALAPRIL MALEATE 5 MG TAB PO SCH (20:24)
[2021-04-24] MEDS: PIPERACILLIN/TAZOBACTAM 3.375 GM in DEXTROSE 5% 100 ML IV SCH ×3 (00:23→16:35)
[2021-04-24] MEDS: ACETAMINOPHEN 1,000 MG/100 ML VIAL IV PRN ×2 (04:40→19:44)
--- NOTE | 2021-04-24 05:49 | Surgery Progress Note ---
Date of Service April 24, 2021 Assessment & Plan (1) Wound infection: Plan: Patient is status post left hemicolectomy on 04/01/[address] Abdullahi. She has been readmitted due to cellulitis and seroma of her surgical wound Continue analgesics Continue antiemetics Would continue TPN and clear liquids for the present time Continue antibiotics. Patient is currently receiving Zosyn Continue local wound care. I have repacked the patient's wound with Nu Gauze this morning. Continue to use incentive spirometry Continue ambulation as able. Due to lower extremity edema I have counseled the patient that this could potentially be due to combination of factors including not being as ambulatory as she is prior to surgery and hypoalbuminemia. I have encouraged her to continue ambulation and to keep her feet elevated when she is not ambulating Lovenox is in place for DVT prevention Admission and Anticipated Discharge Date Admission Date: April 17, 2021 Supervising Physician Co-Signing Physician Notes Patient seen and examined, agree with above. Status post colectomy, readmitted with seroma that was aspirated by Dr. Abdullahi. She continues to complain of nausea and some intermittent abdominal pain. She has return of bowel function with multiple loose bowel movements. She is on TPN. On exam she is afebrile stable vitals, abdomen soft and appropriately tender, did not inspect incision as recently changed by Jone Cohen. Leukocytosis downtrending slightly. Continue TPN, encourage ambulation, await resolution of nausea, no significant change at this time. Subjective Patient is resting comfortably in bed. At the present time she denies any significant abdominal pain. She says she has had a loose bowel movement in the past 24 hours and is passing flatus. She does note nausea intermittently. She denies any fevers, shakes, chills. She does feel that her legs have been swollen. She notes that she spent most of the day yesterday in a chair and this made her feel somewhat better. She denies any shortness of breath. Physical Exam Respiratory: Breath sounds are slightly decreased at the bases but otherwise clear without rales, rhonchi, or wheezing Gastrointestinal (Abdomen): Abdomen is soft and nondistended. Her midline incision is clean dry and intact except for the inferior pole of the incision there is some surrounding erythema. There is also an open area that is packed with Nu Gauze. This gauze is working mostly serous fluid which I changed this morning. Musculoskeletal: Bilateral trace to 1+ lower extremity edema noted. Results & Data ([facility]) Vital Signs (Past 12 Hours) Vital Signs Temp Pulse Resp BP Pulse Ox 04/23/21 22:16 36.3 C L 73 16 165/85 H 92 PG Care Time/CCT Total # of Minutes Spent Total Time Spent with Patient: Total time spent is greater than 50% in coordination of care (as documented) at patient's floor/unit and/or counseling patient: Coding Level of Care Code None Diagnoses Wound infection T14.8XXA; L08.9
[2021-04-24 07:15] LABS: Albumin Globulin Ratio 0.6 (0.9-2); Albumin Level 2.1 gm/dl (3.4-5.0); BUN Creatinine Ratio 8.5 (10-20); Bilirubin,Total 0.4 mg/dl (0.2-1); Calcium 8.6 mg/dl (8.5-10.1); Creatinine Clr Calc Pharmacy 60.8 ml/min; Est GFR (African American) 71.1 ml/min; Est GFR (Non-African American) 61.3 ml/min; Globulin 3.8 gm/dl (2.5-4.0); Phosphorus 3.8 mg/dl (2.5-4.9); Potassium 3.6 mmol/L (3.5-5.1); Total Protein 5.9 gm/dl (6.4-8.2)
[2021-04-24 07:22] LABS: Hematocrit (blood only) 29.5 % (37-47); Hemoglobin 9.7 g/dL (12.0-16.0); Mean Corpuscular Hemoglobin 28.4 pg (25-34); Mean Corpuscular Hgb Conc 32.9 g/dL (32-36); Mean Corpuscular Volume 86.3 fL (80-100); Mean Platelet Volume 10.3 fL (7.4-10.4); Platelet Count 477 K/uL (130-400); RDW Coefficient of Variation 13.8 % (11.5-14.5); RDW Standard Deviation 43.4 fL (36.4-46.3); Red Blood Count 3.42 M/uL (4.2-5.4); White Blood Count 12.93 K/uL (4.8-10.8)
[2021-04-24] MEDS: ENOXAPARIN INJ 30 MG/0.3 ML SYR SQ SCH (09:36)
[2021-04-24 10:41] LABS: Basophils # (auto) 0.02 K/uL (0-0.2); Basophils % (auto) 0.2 %; Eosinophils # (auto) 0.49 K/uL (0-0.5); Eosinophils % (auto) 3.8 %; Immature Granulocytes # (auto) 0.09 K/uL (0.00-0.02); Immature Granulocytes % (auto) 0.7 %; Lymphocytes # (auto) 1.75 K/uL (1.2-3.4); Lymphocytes % (auto) 13.5 %; Monocytes # (auto) 1.08 K/uL (0.11-0.59); Monocytes % (auto) 8.4 %; Neutrophils % (auto) 73.4 %
[2021-04-24] MEDS: ENALAPRIL MALEATE 5 MG TAB PO SCH ×2 (10:50→20:55)
[2021-04-24] MEDS ORDERED: PERIPHERAL PN IV SCH (16:00)
[2021-04-24] MEDS ORDERED: TPN IV SCH (16:00)
[2021-04-25] MEDS: PIPERACILLIN/TAZOBACTAM 3.375 GM in DEXTROSE 5% 100 ML IV SCH ×3 (00:07→16:54)
--- NOTE | 2021-04-25 06:14 | Surgery Progress Note ---
Date of Service April 25, 2021 Assessment & Plan (1) Wound infection: Plan: Patient is status post left hemicolectomy on 04/01/[address] Abdullahi. She has been readmitted due to cellulitis and seroma of her surgical wound Continue analgesics Continue antiemetics We will continue diet in the form of clear liquids; we will continue TPN until her oral intake is able to be improved Continue antibiotics in the form of Zosynculture from her abdominal wound grew B fragilus We will continue local wound care; wound was repacked with Nu Gauze this morning by myself Encourage use use of incentive spirometry Encourage ambulation Lower extremity edema seems improved from yesterday. Encourage ambulation as noted above and continue to elevate legs while she is not ambulating Lovenox is in place for DVT prevention Admission and Anticipated Discharge Date Admission Date: April 17, 2021 Supervising Physician Co-Signing Physician Notes Patient seen and examined, agree with above. Status post colectomy, readmitted with seroma that was aspirated by Dr. Abdullahi. She continues to complain of intermittent nausea. Slight increase in pain overnight. She did have a good lunch yesterday of clear liquids but was not hungry at dinner. She has return of bowel function with multiple loose bowel movements, though these have decreased slightly overnight. She is on TPN. On exam she is afebrile stable vitals, abdomen soft and appropriately tender, did not inspect incision as recently changed by Jone Cohen. Continue TPN, encourage ambulation, await resolution of nausea, no significant change at this time. Dr. Abdullahi returns tomorrow Subjective Patient is resting comfortably in bed. She notes that she feels better when she is sitting up in the chair. She feels as though her abdominal pain in the lower abdomen is worse when she is laying down. She denies any shortness of breath, fever, shakes, chills. She does continue to have intermittent nausea but feels as though this is improved over the past 24 hours. She continues to have liquid bowel movements. Physical Exam Gastrointestinal (Abdomen): Abdomen is soft, and nondistended. Bowel sounds a re present. Her incision is clean dry intact with the exception of the lower pole of her midline incision which has a small open area. The surrounding erythema which was noted yesterday has improved. Patient does have a small open area which is packed with Nu Gauze. The new gauze is working mostly serous drainage. Results & Data ([facility]) Vital Signs (Past 12 Hours) Vital Signs Temp Pulse Resp BP Pulse Ox 04/25/21 00:03 36.6 C 73 18 162/89 H 97 PG Care Time/CCT Total # of Minutes Spent Total Time Spent with Patient: Total time spent is greater than 50% in coordination of care (as documented) at patient's floor/unit and/or counseling patient: Coding Level of Care Code None Diagnoses Wound infection T14.8XXA; L08.9
[2021-04-25 06:29] LABS: BUN Creatinine Ratio 13.7 (10-20); Calcium 8.6 mg/dl (8.5-10.1); Creatinine Clr Calc Pharmacy 59.4 ml/min; Est GFR (African American) 70.2 ml/min; Est GFR (Non-African American) 60.6 ml/min; Magnesium 2.1 mg/dl (1.8-2.4); Potassium 3.7 mmol/L (3.5-5.1)
[2021-04-25 06:30] LABS: Phosphorus 3.7 mg/dl (2.5-4.9)
[2021-04-25] MEDS: ACETAMINOPHEN 1,000 MG/100 ML VIAL IV PRN ×2 (06:38→18:23)
[2021-04-25] MEDS: ENALAPRIL MALEATE 5 MG TAB PO SCH ×2 (09:33→20:18)
[2021-04-25] MEDS: ENOXAPARIN INJ 30 MG/0.3 ML SYR SQ SCH (09:38)
[2021-04-25] MEDS ORDERED: TPN IV SCH (16:00)
[2021-04-25] MEDS ORDERED: PERIPHERAL PN IV SCH (16:00)
[2021-04-26] MEDS: PIPERACILLIN/TAZOBACTAM 3.375 GM in DEXTROSE 5% 100 ML IV SCH ×4 (00:32→23:56)
[2021-04-26] MEDS: ACETAMINOPHEN 1,000 MG/100 ML VIAL IV PRN ×3 (04:10→21:19)
[2021-04-26 06:37] LABS: Basophils # (auto) 0.01 K/uL (0-0.2); Basophils % (auto) 0.1 %; Eosinophils # (auto) 0.38 K/uL (0-0.5); Eosinophils % (auto) 2.9 %; Hematocrit (blood only) 31.9 % (37-47); Hemoglobin 10.5 g/dL (12.0-16.0); Immature Granulocytes # (auto) 0.09 K/uL (0.00-0.02); Immature Granulocytes % (auto) 0.7 %; Lymphocytes # (auto) 1.72 K/uL (1.2-3.4); Lymphocytes % (auto) 12.9 %; Mean Corpuscular Hemoglobin 28.6 pg (25-34); Mean Corpuscular Hgb Conc 32.9 g/dL (32-36); Mean Corpuscular Volume 86.9 fL (80-100); Mean Platelet Volume 9.6 fL (7.4-10.4); Monocytes # (auto) 1.12 K/uL (0.11-0.59); Monocytes % (auto) 8.4 %; Neutrophils # (auto) 9.97 K/uL (1.4-6.5); Platelet Count 465 K/uL (130-400); RDW Coefficient of Variation 13.8 % (11.5-14.5); RDW Standard Deviation 43.6 fL (36.4-46.3); Red Blood Count 3.67 M/uL (4.2-5.4); White Blood Count 13.29 K/uL (4.8-10.8)
[2021-04-26 07:09] LABS: BUN Creatinine Ratio 16.6 (10-20); Calcium 8.6 mg/dl (8.5-10.1); Creatinine Clr Calc Pharmacy 57.5 ml/min; Est GFR (African American) 69.4 ml/min; Est GFR (Non-African American) 59.9 ml/min; Magnesium 2.4 mg/dl (1.8-2.4); Phosphorus 3.2 mg/dl (2.5-4.9); Potassium 3.9 mmol/L (3.5-5.1)
[2021-04-26] MEDS: ENALAPRIL MALEATE 5 MG TAB PO SCH ×2 (08:26→20:34)
--- NOTE | 2021-04-26 08:45 | Surgery Progress Note ---
Date of Service April 26, 2021 Assessment & Plan (1) Postoperative seroma: Plan: clinically improving will try re-introducing diet....if she tolerates can stop PPN tomorrow and start discussing d/c plans. Admission and Anticipated Discharge Date Admission Date: April 17, 2021 Subjective Rosalina feels as though she is continuing to improve. nausea better and actually feels "hungry". pain improving as well. Physical Exam Physical Exam: alert. nad abd: soft. nd. minimal lower wall tenderness. continues with small amount of serous drainage. Results & Data ([facility]) Vital Signs (Past 12 Hours) Vital Signs Temp Pulse Resp BP Pulse Ox 04/26/21 07:35 36.7 C 77 16 162/85 H 98 04/25/21 22:42 36.4 C L 73 16 169/80 H 98 PG Care Time/CCT Total # of Minutes Spent Total Time Spent with Patient: Total time spent is greater than 50% in coordination of care (as documented) at patient's floor/unit and/or counseling patient: Coding Level of Care Code None Diagnoses Postoperative seroma Surgical complication system/body Area: subcutaneous tissue (1) Postoperative seroma Surgical complication system/body Area: subcutaneous tissue
[2021-04-26] MEDS: ENOXAPARIN INJ 30 MG/0.3 ML SYR SQ SCH (10:01)
--- NOTE | 2021-04-26 14:19 | Pharmacy Report ---
PHA: Parenteral Nutrition Con - Date of Service April 26, 2021 - Scope Pharmacy was consulted on 04/23/21 to manage parenteral nutrition orders for this patient. - Subjective The patient is currently on day 4 of peripheral parenteral nutrition for prolonged NPO/poor appetite secondary to nausea/history of left hemicolectomy. - Objective Height: 5 ft 3 in Weight: 74.4 kg Intake & Output (24hrs):: Intake & Output 04/24/21 04/25/21 04/26/21 04/27/21 06:59 06:59 06:59 06:59 Intake Total 2642.333 / 2642.333 3320.758 / 3320.758 3160.872 / 3160.872 212.8 / 212.8 Output Total 1876 / 1876 3900 / 3900 2801 / 2801 Balance 766.333 / 766.333 -579.242 / -579.242 359.872 / 359.872 212.8 / 212.8 Weight 80.1 kg 75.7 kg 74.4 kg Laboratory Data (Last 24 Hr):: 04/26/21 05:59 Sodium 138 Potassium 3.9 Chloride 108 H Carbon Dioxide 25 BUN 17 Creatinine 1.03 Glucose 107 H Calcium 8.6 Phosphorus 3.2 Magnesium 2.4 Triglycerides 188 H Nutrition Assessment:: Please refer to the Notes section of the EMR for the most recent medical office specialist note. - Assessment * Today is day #4 of PPN * Diet advanced today, if tolerated then PPN likely to be discontinued tomorrow * Electrolytes largely stable, chloride mildly elevated * Will largely maintain electrolyte components of PPN, but shift acetate:chloride balance more to acetate * Triglycerides mildly elevated, will follow closely if patient remains on parenteral nutrition. No change to lipid component today. - Plan For day 4 of PN administration, the following will be ordered: Macronutrients Amino acids 75 grams/day Dextrose 160 grams/day Lipids 30 grams/day Micronutrients Sodium chloride 100 mEq Potassium phosphate 21 mMol Potassium acetate 90 mEq Magnesium sulfate 8.12 mEq Multivitamins 10 mL Trace Elements 1 mL Additional additives: thiamine 100 mg, folic acid 1 mg Total volume 2220 mL to be infused over 24 hrs will provide 1174 kcal/day Final osmolarity 882 mOsm/L (maximum for PPN is 900 mOsm/L) Labs, as indicated, will be ordered per protocol Pharmacy will continue to follow and adjust parenteral nutrition orders on a daily basis. Thank you for allowing us to participate in the care of this patient.
[2021-04-26] MEDS ORDERED: TPN IV SCH (16:00)
[2021-04-26] MEDS ORDERED: PERIPHERAL PN IV SCH (16:00)
[2021-04-27] MEDS: ACETAMINOPHEN 1,000 MG/100 ML VIAL IV PRN ×3 (05:21→23:35)
[2021-04-27 07:19] LABS: BUN Creatinine Ratio 19.3 (10-20); Calcium 8.9 mg/dl (8.5-10.1); Creatinine Clr Calc Pharmacy 58.4 ml/min; Est GFR (African American) 71.1 ml/min; Est GFR (Non-African American) 61.3 ml/min; Magnesium 2.4 mg/dl (1.8-2.4)
[2021-04-27 07:30] LABS: Phosphorus 3.9 mg/dl (2.5-4.9)
[2021-04-27] MEDS: ENALAPRIL MALEATE 5 MG TAB PO SCH ×2 (09:16→20:10)
[2021-04-27] MEDS: PIPERACILLIN/TAZOBACTAM 3.375 GM in DEXTROSE 5% 100 ML IV SCH (09:16)
[2021-04-27] MEDS: ENOXAPARIN INJ 30 MG/0.3 ML SYR SQ SCH (11:30)
--- NOTE | 2021-04-27 12:03 | Surgery Progress Note ---
Date of Service April 27, 2021 Assessment & Plan (1) Postoperative seroma: Plan: continues to improve will wean off PPN if she continues to improve will plan d/c home tomorrow. Admission and Anticipated Discharge Date Admission Date: April 17, 2021 Subjective pt seen. feeling better each day. roger 2 egg salad sandwhiches yesterday. no topher sea and pain improved. no new complaints. Physical Exam Physical Exam: alert. nad abd: soft. min lower abd ttp. Results & Data ([facility]) Vital Signs (Past 12 Hours) Vital Signs Temp Pulse Resp BP Pulse Ox 04/27/21 07:35 36.6 C 77 16 147/79 H 96 04/27/21 00:09 36.3 C L 82 16 158/85 H 97 PG Care Time/CCT Total # of Minutes Spent Total Time Spent with Patient: Total time spent is greater than 50% in coordination of care (as documented) at patient's floor/unit and/or counseling patient: Coding Level of Care Code None Diagnoses Postoperative seroma Surgical complication system/body Area: subcutaneous tissue (1) Postoperative seroma Surgical complication system/body Area: subcutaneous tissue
[2021-04-27] MEDS: AMOXICILLIN/CLAVULANATE 875 MG TAB PO SCH (16:25)
[2021-04-28] MEDS: AMOXICILLIN/CLAVULANATE 875 MG TAB PO SCH ×2 (09:07→17:09)
[2021-04-28] MEDS: ENALAPRIL MALEATE 5 MG TAB PO SCH (09:07)
--- NOTE | 2021-04-28 11:02 | Surgery Progress Note ---
Date of Service April 28, 2021 Assessment & Plan (1) Postoperative seroma: Plan: doing well ok for d/c has augmentin at home she is to continue. f/u with me next monday as scheduled. Admission and Anticipated Discharge Date Admission Date: April 17, 2021 Subjective pt feeling well. no issues overnight. tolerating diet. Physical Exam Physical Exam: alert. nad abd: soft. nt. wound looks great. minimal drainage. Results & Data ([facility]) Vital Signs (Past 12 Hours) Vital Signs Temp Pulse Resp BP Pulse Ox 04/28/21 07:13 36.8 C 82 18 134/77 93 PG Care Time/CCT Total # of Minutes Spent Total Time Spent with Patient: Total time spent is greater than 50% in coordination of care (as documented) at patient's floor/unit and/or counseling patient: Coding Level of Care Code None Diagnoses Postoperative seroma Surgical complication system/body Area: subcutaneous tissue (1) Postoperative seroma Surgical complication system/body Area: subcutaneous tissue
[2021-04-28] MEDS: ENOXAPARIN INJ 30 MG/0.3 ML SYR SQ SCH (11:32)
[2021-04-28] MEDS: ACETAMINOPHEN 1,000 MG/100 ML VIAL IV PRN (11:32)
--- NOTE | 2021-04-29 15:23 | Discharge Summary ---
Date of Service April 29, 2021 Principal Diagnosis Abdominal wound seroma Cellulitis Discharge Exam Constitutional WD/WN, vitals as above Gastrointestinal (Abdomen) Inspection/Auscultation: + abdominal surgical incision (no erythema, healing well); abdomen not distended Percussion/Palpation: abdomen soft Discharge Data Allergies Allergy/AdvReac Type Severity Reaction Status Date / Time No Known Allergies Allergy Unknown Verified 04/17/21 07:31 Consultations 04/17/21 09:32 Consult General Surgery Stat 04/17/21 10:11 ED Decision to Admit Stat 04/17/21 10:36 Consult Hospitalist Stat 04/17/21 12:08 Consult Hospitalist Stat Ordered Studies 04/17/21 06:50 CT abd pelvis IV con only Stat 04/20/21 08:48 CT abd pelvis oral and IV con Routine Hospital Course (1) Postoperative seroma: 56 y/o female two 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 WBC was 15,[address] showed a seroma/developing phlegmon along the incision. She was admitted to the surgical service overnight and started on IV Zosyn. Drainage at the bedside was performed by Dr. Abdullahi the next morning. Cultures grew only a few Bacteroides. Two days into admission she had increasing nausea and began vomiting. NG tube was placed. Repeat CT showed improvement of the subcutaneous collection, a few new intraabdominal fluid collections, and some small bowel distention. She was started on TPN given her limited po intake. NG was removed after approximately 36 hours when she began having multiple bowel movements. Her diet was slowly advanced over the next 5-6 days and TPN was discontinued. She received 10 days of IV Zosyn. Her wound was healing well. Once she was tolerating diet, she was stable for discharge on day 11 on oral antibiotics. Total Time Total Time Spent Total Time Spent (In Minutes): 20 Discharge Plan Discharge Items Patient Disposition: Home - Self-Care Reason For Visit: ABDOMINAL PAIN Discharge Diagnosis: infected seroma Activity: Resume your previous activity Activity Comment: may not return to work. return to work date to be determined at follow up Non-emergency contact: Surgeon Call non-emergency contact if: you have any medication questions, your pain is unusual for you, your temperature is above 101, your wound has increased redness, your wound has increased drainage and your wound pain has increased Follow-up/Referrals: Gabriel Carpenter MD [Primary Care Provider] - Doe Abdullahi DO [Surgeon] - 05/04/21 10:45 am Diet: Regular Addtl Attending Provider Instructions: may use tylenol or ibuprofen for pain Pending Studies at Discharge: No Stand-Alone Forms: [facility], Smoking Cessation Medications and DC Order Prescriptions: New enalapril maleate [Vasotec] 10 mg tablet 10 mg PO BID Qty: 60 RF: 0 Continued amoxicillin-pot clavulanate [Augmentin] 875-125 mg tablet 1 tab PO BID Qty: 28 RF: 0 ibuprofen [IBU] 600 mg tablet 600 mg PO Q8H PRN (Reason: Pain) RF: 0 acetaminophen [Acetaminophen Extra Strength] 500 mg Tablet 500 mg PO Q5H PRN (Reason: Pain) RF: 0 oxycodone-acetaminophen [Percocet] 5-325 mg tablet 1 tab PO Q6H PRN (Reason: pain) RF: 0 Discharge Orders: Discharge Order (Routine); Ordered 04/28/21 Ordered By: Doe Abdullahi Admission Data Admit Date/Time: 04/17/21 10:28 Attending Provider: Doe Abdullahi Admit Provider: Doe Abdullahi Primary Care Provider: Gabriel Carpenter Other Providers: Yan Najera ; Heladio Cotter ; Bobby Meza ; Siena Kinsey ; Emmy Avery ; Josselin Fletcher ; Brigid Peguero ; Mohamud Malone ; Jeronimo Reid ; Jaspreet Lu ; Estela Alston ; Lindy Smith ; Yassine Mckenzie ; Zoë Scott ; Petra Dawkins ; Louis Rea ; Mojgan Hollingsworth ; Lilo Mullen ; Zack Lieberman ; Pamela Bedolla I. ; Benigno Arceo ; Palomo Person ; Claude Moura ; Emmy Arndt ; Taz Galan Ismael Andres ; Ej Rivera ; Pete Gutierrez ; Martínez Pagan ; Lopez Mayorga ; Lucille Saini ; Karon Dooley ; Isrrael Humphrey ; Julieth Higgins ; Leonarda Peguero ; Martin Holliday ; Zac Moody ; Neo Voss ; Emmy Gray ; Tawanda Thomson ; Maryann Last ; Negrito Preciado ; Taz Brantley ; Jeffrey Castro ; Gricelda Banks ; Tung Duran ; Julieth Lu ; Manjinder Guzmán ; Leif June ; Patience Mcgrath Other Interventions: Discharge Summary Assessment (RN) Last Done: 04/28/21 17:26 Coding Level of Care Code D/C DAY MANAGEMENT <30 MINS Diagnoses Postoperative seroma Surgical complication system/body Area: subcutaneous tissue
--- NOTE | 2021-05-06 12:56 | Coding Query ---
CODING QUERY To promote full compliance with coding requirements relating to patient care, provider participation is requested in all cases of rubber and plastics worker uncertainty. Please assist us with the question(s) below: Coding Question(s): 1. Please specify below, in your clinical opinion, regarding the documentation on the 04/20 Progress Notes of suspect ileus. ( ) possible ileus. Please specify further below: ( ) postoperative ileus as a complication of procedure ( ) due to previous procedure before admission ( ) due to procedure on this admission ( x ) unspecified ileus - not a complication of procedure ( ) other ileus: Please Specify ( ) ileus ruled-out ( ) other: Please Specify 2. Please specify below, in your clinical opinion, regarding documentation of Infected Seroma, Post-op incision, cellulitis, phlegmon, Wound infection. ( x ) likely Postoperative Complications ( ) Not Postoperative Complications ( ) Other: Please Specify Physician's Response(s): Thank you Vale Sanchez Principal Diagnosis: "that condition established after study, to be chiefly responsible for occasioning the admission of the patient to the hospital for care." Co-Existing Principal Diagnosis: "when two or more diagnoses equally meet the criteria for principal diagnosis as determined by the circumstances of admission, diagnostic work up, and/or therapy provided, and the Alphabetic Index, Tabular List, or another coding guideline does not provide sequencing direction, any one of the diagnoses may be sequenced first." "When the physician has documented what appears to be a current diagnosis in the body of the record, but has not included the diagnosis in the final diagnostic statement, the physician should be asked whether the diagnosis should be added." ([facility] 2 QTR90. p3-4) PIPE
== END 2021-04-28 17:43 | disposition home or self-care (01) | DRG 920 ==
LOC: ED 06:13 → 3E 10:28

== ENCOUNTER 2022-06-23 05:52 | Observation (INO) ==
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
[2022-06-23] MEDS ORDERED: LR 15ML/HR IV SCH (06:00)
[2022-06-23] MEDS ORDERED: ceFAZolin 2000MG 2,000 MG/15 ML SYR IV SCH (06:00)
[2022-06-23] MEDS ORDERED: ePHEDrine sulfate 50 MG/ML AMP IV PRN (06:53)
[2022-06-23] MEDS ORDERED: ONDANSETRON INJ 2 MG/ML 2 ML VIAL IV PRN ×2 (06:53→11:04)
[2022-06-23] MEDS ORDERED: ATROPINE SULFATE 0.1 MG/ML 10ML SYR IV PRN (06:53)
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
[2022-06-23] MEDS ORDERED: fentaNYL citrate 100 MCG/2 ML VIAL ONE ×3 (07:01→08:16)
[2022-06-23] MEDS ORDERED: MIDAZOLAM HCL 1 MG/ML 2ML VIAL ONE (07:01)
[2022-06-23] MEDS ORDERED: BUPIVACAINE/EPINEPHRINE 0.5% MPF 1:200,000 30 ML VIAL ONE (07:05)
[2022-06-23] MEDS ORDERED: BUPIVACAINE 0.5 % 5 MG/1 ML MPF 30ML VIAL ONE (07:05)
[2022-06-23] MEDS ORDERED: ACETAMINOPHEN 1000 MG/100 ML IV IV ONE (07:07)
[2022-06-23] MEDS ORDERED: NEOSTIGMINE METHYLSULFATE 1 MG/ML 10ML VIAL ONE (08:00)
[2022-06-23] MEDS ORDERED: DEXAMETHASONE SOD INJ 4 MG/ML VIAL ONE (08:00)
[2022-06-23] MEDS ORDERED: GLYCOPYRROLATE 0.2 MG/ML VIAL ONE (08:00)
[2022-06-23] MEDS ORDERED: ONDANSETRON INJ 2 MG/ML 2 ML VIAL ONE (08:00)
[2022-06-23] MEDS ORDERED: LIDOCAINE 2% MPF LOCAL 5 ML VIAL INFIL ONE (08:00)
[2022-06-23] MEDS ORDERED: PROPOFOL IV EMULSION 10 MG/ML 20 ML VIAL IV ONE (08:00)
[2022-06-23] MEDS ORDERED: ROCURONIUM BROMIDE 10 MG/ML 5 ML VIAL IV ONE (08:07)
[2022-06-23] MEDS ORDERED: HYDROmorphone INJ 2 MG/ML SYR/VIAL ONE (08:52)
[2022-06-23] MEDS ORDERED: KETOROLAC 30 MG/ML VIAL ONE (08:56)
[2022-06-23] MEDS ORDERED: PHENYLEPHRINE 100MCG/ML 5ML SYR ONE (09:06)
--- NOTE | 2022-06-23 09:41 | Operative Report ---
PG Post Operative Report Pre & Post Diagnosis Operation Date: 06/23/22 07:30 Pre-Op Diagnosis: Incarcerated Ventral Hernia, Lipoma abdominal wall and left thigh Post-Op Diagnosis: Incarcerated Ventral Hernia, Lipoma abdominal wall and left thigh; adhesions I identified the patient and participated in the time-out.: Yes Procedure Operation Date: 06/23/22 07:30 Actual Procedures p Laparoscopic Incisional Hernia Repair with Mesh, Enterolysis, Repair second incisional hernia without mesh(Not Applicable) - Doe Abdullahi DO s Excision of Lipoma Right Abdominal Wall 2 CM, Excision of Lipoma Left Upper Thigh 3 CM(Bilateral) - Doe Abdullahi DO Surgeon Doe Abdullahi DO Social Media Analyst dionicio Richards Estimated Blood Loss 10 Findings Consistent with Post-Op Diagnosis Specimens lipomas x 2 Description of Procedure After informed consent was obtained the patient was taken to the operating room and placed in supine position. After successful intubation a Mccollum catheter was placed and the abdomen was sterilely prepped and draped in usual fashion. I began with a left upper quadrant incision with 11 blade scalpel. This was carried down through the soft tissue using cautery. Anterior fascia was opened using cautery and two #0 Vicryl stay sutures were placed. Peritoneum was elevated with hemostats and incised under direct vision using Metzenbaum scissor. Finger sweep was performed. A 12 mm Palacios trocar was placed and the abdomen was insufflated to 20 mmHg. Laparoscope was inserted and the abdomen examined in 360 degrees. There was a very large central midline hernia. There is also a very small port site hernia in the right lower quadrant. There were also some adhesions in the right lower quadrant as well as mid abdomen. I began by making a small incision over the palpable right mid abdominal lipoma. Cautery was used with traction to pull it out in 1 piece. It was sent to pathology. It measured approximately 2 cm. This wound was closed with 4-0 Monocryl. Next I was able to place a right lower quadrant 5 mm trocar a right upper quadrant 5 mm trocar a left lower quadrant 5 mm trocar in the left upper quadrant 5 mm trocar. We began by taking down the adhesions using traction blunt dissection and small amounts of harmonic scalpel. Next we used a large 22 x 15 cm surgimesh. I placed 2-0 Prolene one at the top and one at the bottom. It was rolled and placed in the abdomen via the large port. It was unrolled and placed such that the antiadhesive barrier was facing the bowel. A small incision was made several centimeters above the superior aspect of the hernia. Fascial closure device was advanced and the Prolene stitch was grasped and used to pull the mesh up to the undersurface of the abdomen. Same technique was used for the lower pole. This held the mesh in place superiorly and inferiorly. I then used the Reliatack reticulating tacker. We tacked the entire right side of the abdomen initially followed by the left side. We used 2 rows of tacks on both sides as well as superiorly /inferiorly. When we are finished it laid nice and flat and tension-free. No other abdominal abnormalities were identified. There was adequate hemostasis. Regarding the small subcentimeter port site hernia in the right lower quadrant we made an incision over it. Fascial closure device was advanced with a 0 Prolene stitch. This was grasped and the second arm of the Prolene stitch was advanced on the other side. We did this 1 lateral and 1 medial until the small defect was completely closed. All the trochars were removed and the abdomen desufflated. The fascia of the camera port was closed using 0 Vicryl in [id number] fashion. All the wounds were irrigated and closed using 4-0 Monocryl. Marcaine with epinephrine was injected around all the incisions and Dermabond glue was used as a dressing. We then took down the drapes. I reprepped and draped the left upper thigh lipoma. A small incision was made over it. With traction cautery was easily extracted and sent to pathology. The wound was irrigated and closed using 4-0 Monocryl. Dermabond glue was used as a dressing. This measured approximately 3 cm. The patient was awakened extubated and transferred recovery in stable condition. My physician neurology physician assistant was present through the entire case. He was instrumental in assisting with running the camera mesh placement wound closure and dressing placement. I attest to the content of the Intraoperative Record and any orders documented therein. Any exceptions are noted below.
[2022-06-23] MEDS: fentaNYL citrate 100 MCG/2 ML VIAL IV PRN ×4 (09:43→10:05)
[2022-06-23] MEDS ORDERED: HYDROmorphone INJ 0.5 MG/0.5 ML SYR IV PRN (11:04)
[2022-06-23] MEDS ORDERED: oxyCODONE/ACETAMINOPHEN 5mg/325mg TAB PO PRN (11:04)
[2022-06-23] MEDS: LACTATED RINGER'S 1,000 ML IV SCH (11:15)
--- NOTE | 2022-06-23 12:16 | Anesthesiology Progress Note ---
Date of Service June 23, 2022 Anesthesia Post Procedure Vital Signs Vital Signs: Temp Pulse Resp BP Pulse Ox O2 Del Method O2 Flow Rate 06/23/22 11:54 97.3 F L 80 18 130/76 97 Room Air 06/23/22 11:00 97.5 F L 100 H 18 145/75 H 95 Room Air 06/23/22 10:35 87 16 144/82 H 94 Nasal Cannula 2 06/23/22 10:25 60 13 133/79 97 Room Air 06/23/22 10:15 83 13 122/77 96 Room Air 06/23/22 10:05 97.2 F L 84 18 147/76 H 97 Room Air 06/23/22 09:55 79 17 147/68 H 100 Room Air 06/23/22 09:45 67 14 155/85 H 100 Oxymask 4 06/23/22 09:35 71 16 152/85 H 100 Oxymask 4 06/23/22 09:25 96.8 F L 80 16 148/80 H 100 Oxymask 6 06/23/22 06:11 98.1 F 98 H 20 156/87 H 96 Room Air Pain Intensity Abdomen: Pain Intensity: 4 Transfer of Care Handoff Completed per policy Notes Mental Status: alert / awake / arousable and participated in evaluation Patient Amnestic to Procedure: Yes Nausea / Vomiting: adequately controlled Pain: adequately controlled Airway Patency, RR, SpO2: stable & adequate BP & HR: stable & adequate Hydration State: stable & adequate Anesthetic Complications: no major complications apparent and Pt Satisfied with anesthetic care
[2022-06-23] MEDS: oxyCODONE/ACETAMINOPHEN 5mg/325mg TAB PO PRN ×2 (12:27→16:50)
[2022-06-23] MEDS: KETOROLAC 30 MG/ML VIAL IV PRN ×2 (14:04→20:42)
[2022-06-23] MEDS: ceFAZolin 2000MG 2,000 MG/15 ML SYR IV SCH ×2 (14:09→23:04)
[2022-06-23] MEDS ORDERED: LORazepam 0.5 MG in SYRINGE 0 ML IV PRN (16:48)
[2022-06-23] MEDS ORDERED: HYDROmorphone INJ 1 MG/ML SYRINGE IV PRN (16:48)
[2022-06-23] MEDS: ACETAMINOPHEN 1,000 MG/100 ML VIAL IV SCH (17:21)
[2022-06-23] MEDS: busPIRone 5 MG TAB PO SCH (20:46)
[2022-06-23] MEDS ORDERED: oxyCODONE HCL IR 5 MG TAB (IMMEDIATE RELEASE) PO PRN (21:00)
[2022-06-23] MEDS ORDERED: PROMETHAZINE HCL 12.5 MG in SODIUM CHLORIDE 0.9% 50 ML IV STA (23:18)
[2022-06-24] MEDS: LACTATED RINGER'S 1,000 ML IV SCH ×2 (01:18→14:56)
[2022-06-24] MEDS: ACETAMINOPHEN 1,000 MG/100 ML VIAL IV SCH ×3 (01:19→18:16)
[2022-06-24] MEDS: KETOROLAC 30 MG/ML VIAL IV PRN ×3 (04:47→18:15)
[2022-06-24] MEDS: ceFAZolin 2000MG 2,000 MG/15 ML SYR IV SCH (06:50)
[2022-06-24] MEDS: busPIRone 5 MG TAB PO SCH ×2 (07:52→21:07)
[2022-06-24] MEDS: CETIRIZINE HCL 10 MG TABLET PO SCH (07:53)
[2022-06-24] MEDS: FLUTICASONE PROPIONATE NA SPR 16 GM BTL NAE SCH (07:59)
[2022-06-24] MEDS ORDERED: PROMETHAZINE HCL 12.5 MG in SODIUM CHLORIDE 0.9% 50 ML IV PRN (08:47)
--- NOTE | 2022-06-24 08:49 | Surgery Progress Note ---
Date of Service June 24, 2022 Assessment & Plan (1) Incarcerated ventral hernia: Plan: POD 1 lap repair of large incisional hernia increase diet, activity as roger, may need another day of IVF/analgesics as above. feeling better this am. not ready for d/c yet will advance diet. increase activity. possible d/d tomorrow. Dr. Abel covering for weekend. Admission and Anticipated Discharge Date Admission Date: June 23, 2022 Subjective nausea yesterday but better this AM, not drinking much, having some pain Physical Exam Gastrointestinal (Abdomen): Inspection/Auscultation: abdomen not distended Percussion/Palpation: abdomen soft (binder in place) Results & Data ([facility]) Vital Signs (Past 12 Hours) Vital Signs Temp Pulse Resp BP Pulse Ox O2 Del Method 06/24/22 08:00 36.3 C L 83 16 136/76 95 Room Air 06/24/22 03:06 36.7 C 83 18 144/77 H 95 Room Air 06/23/22 23:18 36.5 C 88 18 165/85 H 96 Room Air PG Care Time/CCT Total # of Minutes Spent Total Time Spent with Patient: Total time spent is greater than 50% in coordination of care (as documented) at patient's floor/unit and/or counseling patient: Coding Level of Care Code None Diagnoses Incarcerated ventral hernia K43.6
[2022-06-24] MEDS ORDERED: HYDROXYCHLOROQUINE SULFATE 200 MG TAB PO SCH (09:00)
[2022-06-25] MEDS: KETOROLAC 30 MG/ML VIAL IV PRN ×2 (01:00→09:47)
[2022-06-25] MEDS: ACETAMINOPHEN 1,000 MG/100 ML VIAL IV SCH ×2 (01:00→09:48)
[2022-06-25] MEDS: LACTATED RINGER'S 1,000 ML IV SCH (01:05)
[2022-06-25] MEDS: CETIRIZINE HCL 10 MG TABLET PO SCH (09:47)
[2022-06-25] MEDS: busPIRone 5 MG TAB PO SCH (09:47)
[2022-06-25] MEDS: FLUTICASONE PROPIONATE NA SPR 16 GM BTL NAE SCH (09:48)
--- NOTE | 2022-06-25 09:55 | Surgery Progress Note ---
Date of Service June 25, 2022 Assessment & Plan (1) Incarcerated ventral hernia: Plan: POD lap repair of large incisional hernia doing better ok for discharge Admission and Anticipated Discharge Date Admission Date: June 23, 2022 Subjective no nausea, tolerating diet and po analgesics Physical Exam Constitutional: WD/WN, vitals as above Gastrointestinal (Abdomen): Inspection/Auscultation: + abdominal surgical incision (dry); abdomen not distended Percussion/Palpation: abdomen soft Results & Data ([facility]) Vital Signs (Past 12 Hours) Vital Signs Temp Pulse Resp BP Pulse Ox O2 Del Method 06/25/22 07:38 36.5 C 90 18 163/84 H 94 Room Air 06/24/22 23:58 36.7 C 89 16 159/84 H 96 Room Air PG Care Time/CCT Total # of Minutes Spent Total Time Spent with Patient: Total time spent is greater than 50% in coordination of care (as documented) at patient's floor/unit and/or counseling patient: Coding Level of Care Code None Diagnoses Incarcerated ventral hernia K43.6
--- NOTE | 2022-06-25 12:15 | Discharge Summary ---
Date of Service June 25, 2022 Admission HPI Per Admitting Provider Ashley is here for repair of her ventral incisional hernia. There have been no changes to her health history since I seen her last in the office. She has an abdominal wall lipoma that bothers her that we will excise. She also is showing me a left upper thigh lipoma which hurts her as well and she is inquiring whether we can remove that. Previously she had 1 on her arm but that seems to come and go and has not been bothering her and so therefore she wants to hold on attempting excision of that 1. Principal Diagnosis 1. Large incisional hernia 2. Abdominal and left thigh lipomas Discharge Exam Constitutional WD/WN, vitals as above Gastrointestinal (Abdomen) Inspection/Auscultation: + abdominal surgical incision (Dry) Percussion/Palpation: abdomen soft Skin Right thigh and lateral abdominal wound clean and dry. Discharge Data Allergies Allergy/AdvReac Type Severity Reaction Status Date / Time tramadol AdvReac Unknown Migraine Verified 06/23/22 06:14 Procedures Performed Operation Date: 06/23/22 07:30 Actual Procedures p Laparoscopic Incisional Hernia Repair with Mesh, Enterolysis, Repair second incisional hernia without mesh(Not Applicable) - Doe Abdullahi DO s Excision of Lipoma Right Abdominal Wall 2 CM, Excision of Lipoma Left Upper Thigh 3 CM(Bilateral) - Doe Abdullahi DO Hospital Course (1) Incarcerated ventral hernia: 57-year-old female with incarcerated ventral hernia was taken the operating room for elective laparoscopic repair. Lipomas were also moved from the right abdomen and left thigh. She was transferred to the surgical floor for overnight observation. She continued to require IV analgesics on postoperative day 1. She was able to increase diet during the day after her nausea resolved. By postoperative day 2 she was tolerating diet and oral analgesics. She was stable for discharge home. Continue to wear abdominal binder majority of the time. Total Time Total Time Spent Total Time Spent (In Minutes): 15 Discharge Plan Discharge Items Patient Disposition: Home - Self-Care Reason For Visit: Incarcerated Ventral Hernia, Lipoma Discharge Diagnosis: Ventral hernia repair Removal of Lipoma x2 Activity: Per Instructions section Lifting: No more than 10 pounds Bathing Comment: may shower starting 06/24/22; no soaking in tubs/pools Exercise/Sports: Wait until after follow-up appointment Driving/Machine Use: no driving while taking narcotic for pain Non-emergency contact: Surgeon Call non-emergency contact if: you have any medication questions, your symptoms worsen, your pain is not controlled, your pain is concerning for you, you have a fever, your temperature is above 101.5, your wound has increased redness, your wound has increased drainage and your wound pain has increased Follow-up/Referrals: Gabriel Carpenter MD [Primary Care Provider] - Doe Abdullahi, [Surgeon] - (Please call to schedule follow up in clinic within 2 weeks ) Diet: Regular Addtl Attending Provider Instructions: do not return to work until evaluated at your post operative appointment on Jul 01. Pending Studies at Discharge: Yes Studies:: surgical pathology Stand-Alone Forms: [facility] Medications and DC Order Prescriptions: Continued buspirone 5 mg tablet 5 mg PO BID Qty: 60 2RF oxycodone-acetaminophen 5-325 mg tablet 1 tab PO Q6H PRN (Reason: pain) Qty: 20 0RF dextroamphetamine-amphetamine [Adderall] 5 mg tablet 5 mg PO DAILY PRN (Reason: COGNITIVE IMPAIRMENT) Qty: 30 0RF ibuprofen [IBU] 600 mg tablet 600 mg PO Q8H PRN (Reason: Pain) fluticasone propionate [Flonase Allergy Relief] 50 mcg/actuation spray,suspension See Rx Instructions intranasal DAILY Qty: 16 2RF Rx Instructions: 2 sprays each nostril daily x 2 weeks then 1 spray each nostril x 2 weeks then PRN congestion hydrochlorothiazide 12.5 mg capsule 12.5 mg PO QAM PRN (Reason: edema ) Qty: 30 0RF ketoconazole 2 % cream 1 applic topical BID Qty: 60 1RF Rx Instructions: Apply to the 10 toenails BID until cleared. cetirizine [Zyrtec] 10 mg Tablet 10 mg PO DAILY Discontinued hydroxychloroquine [Plaquenil] 200 mg Tablet 200 mg PO QAM Discharge Orders: Discharge Order (Routine); Ordered 06/25/22 Ordered By: Qasim Richards Jr Admission Data Admit Date/Time: 06/23/22 09:30 Attending Provider: Doe Abdullahi Admit Provider: Doe Abdullahi Primary Care Provider: Gabriel Carpenter Coding Level of Care Code D/C DAY MANAGEMENT <30 MINS Diagnoses Incarcerated ventral hernia K43.6
== END 2022-06-25 13:13 | disposition home or self-care (01) ==
LOC: ASU 05:52 → 3E 05:52
DX: K43.0 Incisional hernia with obstruction, without gangrene; Z79.1 Long term (current) use of non-steroidal anti-inflammatories (NSAID); Z86.16 Personal history of COVID-19; F07.81 Postconcussional syndrome; Z88.5 Allergy status to narcotic agent; D17.5 Benign lipomatous neoplasm of intra-abdominal organs; Z87.891 Personal history of nicotine dependence; M35.00 Sjogren syndrome, unspecified; D17.24 Benign lipomatous neoplasm of skin and subcutaneous tissue of left leg; Z90.49 Acquired absence of other specified parts of digestive tract; Z79.899 Other long term (current) drug therapy